=== PATIENT | female | born 1995 | race Caucasian/White ===

== ENCOUNTER 2023-09-13 13:37 | Emergency (ER) | payer BC, SELFPAY ==
[2023-09-13 13:45] VITALS: BP 127/85; PULSE 107; RESP 18; TEMP 37; O2SAT 97; BMI 27.4
--- NOTE | 2023-09-13 14:07 | ED.CHESTPAI1 ---
HPI - Chest Pain General Chief Complaint: Chest Pain Stated Complaint: CHEST PAIN, HIGH BLOOD PRESSURE Time Seen by Provider: 09/13/23 13:48 Source: patient Mode of arrival: walk-in Limitations: no limitations History of Present Illness HPI narrative: This 28-year-old female is here for evaluation of chest sharp pain. Symptoms began yesterday they lasted intermittently for about 3 hours yesterday morning and then later in the day they lasted nearly the entire day. However each episode she has just last for a second or 2 and goes away and then it will come back. It did not interrupt her sleep. She had recurrence of the symptoms today. Yesterday the pain was in her left mid sternum today to the right mid sternum. There is no associated nausea vomiting or diaphoresis. The pain is never been continuous. She does not have any shortness of breath. 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 She has never had any other serious medical problems and is not on any medication. She has not used any marijuana for at least a month or so. No other street or illicit drugs. She is not on any [id number] stimulants. She has no fever shakes or chills. No swelling of her legs. No history of vascular clotting disorders herself. She does not know much about her family history at all. She does have a family doctor in [facility]. She has no previous history of syncopal episodes. She has no loss of consciousness with doing aggressive workouts that she had last week. No travel history. No recent viral symptomatology. No history of cardiac disease. Related Data Home Medications Medication Instructions Recorded Confirmed No Known Home Medications 09/13/23 09/13/23 Allergies Allergy/AdvReac Type Severity Reaction Status Date / Time No Known Drug Allergies Allergy Verified 09/13/23 13:45 PFSH PFS Social History Smoking status: Never smoker Exam Narrative Exam Narrative: This patient is awake alert pleasant no obvious distress. Blood pressure is normal with slight increased heart rate. Twelve-lead EKG was done on arrival here does show sinus rhythm with no ischemia injury infarct or ectopy. HEENT examination showed scleral icterus pallor or anemia. No thyromegaly. No evidence of upper respiratory infection. Her lungs are clear with no wheeze rales rhonchi no pleural rub. Heart sounds normal with no arrhythmia. No heart murmurs appreciated. She does not have any abdominal discomfort.. Extremities show no swelling phlebitis or tenderness to palpation. Skin integument were normal with normal hydration status. Constitutional Vital Signs, click to edit/add: Last Vital Signs Temp 98.6 F 09/13/23 13:45 Pulse 107 H 09/13/23 13:45 Resp 18 09/13/23 13:45 BP 127/85 09/13/23 13:45 Pulse Ox 97 09/13/23 13:45 O2 Del Method Room Air 09/13/23 13:45 Course Vital Signs Vital signs: Vital Signs Temperature 98.6 F 09/13/23 13:45 Pulse Rate 107 H 09/13/23 13:45 Respiratory Rate 18 09/13/23 13:45 Blood Pressure 127/85 09/13/23 13:45 Pulse Oximetry 97 09/13/23 13:45 Oxygen Delivery Method Room Air 09/13/23 13:45 Temperature 98.6 F 09/13/23 13:45 Pulse Rate 107 H 09/13/23 13:45 Respiratory Rate 18 09/13/23 13:45 Blood Pressure 127/85 09/13/23 13:45 Pulse Oximetry 97 09/13/23 13:45 Oxygen Delivery Method Room Air 09/13/23 13:45 MDM - Chest Pain MDM Narrative Medical decision making narrative: This patient has history of discomfort since yesterday lasting very brief moments. She has normal vital signs and oximetry. Her EKG did not show any abnormalities. The cord Coppin diameter and cardiac troponin are both normal. Chest x-ray does not show any or mall. I did leave this card vascular in etiology. Supportive care was advised ECG Data Interpretation: EKG shows sinus rhythm rate 98 QT intervals normal. There is no ST segment elevation or arrhythmia noted. Heart Score History: Slightly/Non-Suspicious ECG: Normal Age: <45 years Risk Factors: No Risk Factors Troponin: <Normal Limit Total Heart Score Recommendations & Risks:: 0 Discharge Plan Discharge Chief Complaint: Chest Pain Clinical Impression: Atypical chest pain Patient Disposition: Home, Self-Care Time of Disposition Decision: 15:14 Prescriptions / Home Meds: No Action No Known Home Medications Additional Instructions: May use [id number] NSAIDs for several days only Stand Alone Forms: Portal Instructions Referrals: JANETH VALDEZ [Physician] - 1 week
--- NOTE | 2023-09-13 14:09 | ECG_ITS ---
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
--- NOTE | 2023-09-13 14:25 | XR_ITS ---
The [address] [address] Patient Name: JAMARI WAYNE MRN: [id number] date: 1995 Sex: F Assigned Patient Location: ER Current Patient Location: ED.MAIN Accession/Order Number: [id number] Exam Date: 09/13/2023 14:20 Report Date: 09/13/2023 14:51 At the request of: SANA LLAMAS Procedure: XR chest 1V EXAMINATION: XR chest 1V HISTORY: Chest pain COMPARISON: No relevant comparison available. FINDINGS: LUNGS: No significant pulmonary parenchymal abnormalities. VASCULATURE: No increased pulmonary vasculature. PLEURA: No pneumothorax, effusion, or pleural thickening. CARDIAC: No cardiomegaly or cardiac silhouette abnormality. MEDIASTINUM: No visible mass or adenopathy. BONES: No fracture or visible bone lesion. OTHER: Negative. XR/XR chest 1V IMPRESSION: 1. Normal examination. Electronically authenticated by: MARK MARTINEZ Date: 09/13/2023 14:51
[2023-09-13 14:30] LABS: Basophils Absolute Auto 0.1 10^3/uL (0.0-0.1); Basophils Percent Auto 0.5 % (0.2-2.0); Eosinophils Absolute Auto 0.3 10^3/uL (0.0-0.7); Eosinophils Percent Auto 2.5 % (0.9-7.0); Hematocrit 38.1 % (36.0-48.0); Hemoglobin 12.4 g/dL (12.0-16.0); Immature Granulocytes Abs Auto 0.04 10^3/uL (0.00-0.03); Immature Granulocytes Pct Auto 0.4 % (0.0-0.5); Lymphocytes Absolute Auto 1.8 10^3/uL (1.2-3.8); Lymphocytes Percent Auto 15.9 % (20.5-60.0); Mean Corpuscular HGB Conc 32.5 g/dL (29.9-35.2); Mean Corpuscular Hemoglobin 28.8 pg (26.7-34.0); Mean Corpuscular Volume 88.4 fL (81.0-99.0); Mean Platelet Volume 10.8 fL (9.5-13.5); Monocytes Absolute Auto 0.6 10^3/uL (0.3-0.8); Monocytes Percent Auto 5.8 % (1.7-12.0); Neutrophils Absolute Auto 8.3 10^3/uL (1.4-6.5); Neutrophils Percent Auto 74.9 % (43.0-75.0); Platelet Count 238 10^3/uL (150-450); Red Blood Count 4.31 10^6/uL (4.20-5.40); Red Cell Distribution Width 11.9 % (11.0-15.0); White Blood Count 11.1 10^3/uL (4.0-11.0)
[2023-09-13 14:46] LABS: Anion Gap 11.2; BUN Creatinine Ratio 14.4; Calcium 9.2 mg/dL (8.5-10.1); Carbon Dioxide 28.7 mmol/L (21.0-32.0); Chloride 105 mmol/L (98-107); Estimated GFR (African America >60 (>=60); Estimated GFR (Non-African Ame >60 (>=60); Glucose 115 mg/dL (74-106); Potassium 3.9 mmol/L (3.5-5.1); Sodium 141 mmol/L (136-145); Troponin I High Sensitivity 4.8 pg/mL (4.0-51.3)
[2023-09-13 15:01] LABS: D Dimer <0.19 mg/L FEU (<=0.59)
== END 2023-09-13 15:22 | disposition home or self-care (01) ==
PROVIDERS: Emergency Provider Emergency Medicine Emergency Medical Services
DX: R07.89 Other chest pain (principal); Q51.818 Other congenital malformations of uterus; Q50.01 Congenital absence of ovary, unilateral; Q60.0 Renal agenesis, unilateral
CPT/HCPCS: 36415; 71045; 80048; 84484; 85025; 85378; 93005; 99285

== ENCOUNTER 2023-09-18 20:10 | Emergency (ER) | payer BC, SELFPAY ==
[2023-09-18] VITALS (11 sets, daily range): BP systolic 133–141; BP diastolic 72–86; PULSE 79–93; RESP 6–23; TEMP 36.8; O2SAT 96–100; BMI 26.7
--- OUTSIDE RECORDS SUMMARY | 2023-09-18 20:15 | XMS_ITS | CCD ---
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, unilateral; 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] Onset: 09-04-2018 Chronic Results Test Name Value Interpretation Reference Range Facility Celiac 12-08-2020 Deamidated Gliadin Abs, IgA 17 Normal 0-19 [facility] Comment on above: Result Comment: Nega tive 0 - 19 Weak Positive 20 - 30 Moderate to Strong Positive >30 Performed By: #### C ELIAC #### [facility] , Deamidated Gliadin Abs, IgG 104 High 0-19 [facility] Comment on above: Result Comment: Nega tive 0 - 19 Weak Positive 20 - 30 Moderate to Strong Positive >30 Performed By: #### C ELIAC #### [facility] , Endomysial Antibody IgA Positive Critically abnormal Negative [facility] Comment on above: Performed By: #### C ELIAC #### [facility] , Immunoglobulin A, Qn, Serum 122 mg/dL Normal 87-352 [facility] Comment on above: Result Comment: Perf ormed at: CB - [facility] [address] [id number] [employer] Loader Operator: Charles Berger PhD, Phone: [phone] PERFORMED BY: [facility] [place] [address] PATHOLOGIST ACCOUNTING CLERKS SUPERVISOR HAILEY MOON M.D. Performed By: #### C ELIAC #### [facility] , T-Transglutaminase (tTG) IgA 25 High 0-3 [facility] Comment on above: Result Comment: Nega tive 0 - 3 Weak Positive 4 - 10 Positive >10 Tissue Transglutaminase (tTG) has been identified as the endomysial antigen. Studies have demonstr- ated that endomysial IgA antibodies have over 99% specificity for gluten sensitive enteropathy. Performed By: #### C ELIAC #### [facility] , T-Transglutaminase (tTG) IgG 53 High 0-5 [facility] Comment on above: Result Comment: Nega tive 0 - 5 Weak Positive 6 - 9 Positive >9 Performed By: #### C ELIAC #### [facility] , Marvel 12-08-2020 L - -------- Specimen: [id number] Received: 12/08/20 Status: ESSENCE Montaño Num: [id number] Spec Type: Surgical Subm Dr: Kaushal Marie MD Tissues: A Small Intestine - Biopsy/Polyp (SMALL BOWEL BX) Procedures: HE Stain/2, Gross/Micro L4 -------- Patient Age/Sex Location Account Attending Physician -------- Ivette Blum 25/ [id number] Kaushal Marie MD -------- SPEC NUM: [id number] RECD: 12/08/20 STATUS: ESSENCE MONTAÑO NUM: [id number] MELINDA: 12/08/20- SUBM DR: Kaushal Marie MD ENTERED: 12/08/20-[address] [facility] [address]: ABA TYPE: Surgical DEPT: S ORDERED: HE Stain/2, Gross/Micro L4 ORDERED: HE Stain/2, Gross/Micro L4 Pathological Diagnosis Small intestine, biopsy: - Small intestinal mucosa showing moderate mucosal lesions with villous blunting and intraepithelial lymphocytosis (see NOTE) NOTE: The findings are characteristic of gluten sensitive enteropathy (i.e. celiac sprue) in the proper clinical setting. Correlation with serologic studies is indicated. Other possible differential considerations include (but are not limited to) Helicobacter enterogastritis, autoimmune enteropathy, refractory sprue, protein intolerance and nutritional deficiencies. Correlation with clinical and endoscopic findings is recommended. Clinical Information Dyspepsia, change in bowel habits Gross Description Received in formalin labeled with the patient's name, number and small bowel biopsy rule out celiac are 4 thornton-pink tissue fragments, 0.3-0.4 cm. Entirely submitted in one cassette labeled A1. (SM/JS) Microscopic Description Two glass slides with H E stained material have been examined. The microscopic findings support the above pathologic diagnosis. [id number] -------- -------- Specimen: [id number] Received: 12/08/20 Status: ESSENCE Ermelinda Num: [id number] Spec Type: Surgical Subm Dr: Kaushal Marie MD Tissues: A Small Intestine - Biopsy/Polyp (SMALL BOWEL BX) Procedures: HE Stain/2, Gross/Micro L4 -------- Patient: Ivette Blum [id number] (Continued) -------- Signed (signature on file) Hailey Moon MD 12/09/20 8898 [facility] COVID-19 [facility] [place] SARS-CoV-2 (COVID-19) RNA MARGARETH+probe Ql (Unsp spec) Negative Normal Negative [facility] Comment on above: Order Comment: Healt hcare Worker?: N Result Comment: Testing for SARS-CoV-2 by RT-PCR This test was developed and its performance characteristics determined by [employer] [facility] and validated at the [facility]. This test has not been FDA cleared or approved. This test has been authorized by FDA under an Emergency Use Authorization (EUA). This test has been validated in accordance with the FDA's Guidance Document (Policy for Diagnostics Testing in Laboratories Certified to Perform High Complexity Testing under CLIA prior to Emergency Use Authorization for Coronavirus Disease-2019 during the Public Health Emergency) issued on October 25, 2019. This test is only authorized for the duration of time the declaration that circumstances exist justifying the authorization of the emergency use of in vitro diagnostic tests for detection of SARS-CoV-2 virus and/or diagnosis of COVID-19 infection under section 564(b)(1) of the Act, 21 U.S.C. 360bbb-3(b)(1), unless the authorization is terminated or revoked sooner. PERFORMED BY: [place] [address] PATHOLOGIST ACCOUNTING CLERKS SUPERVISOR HAILEY MOON M.D. Performed By: #### C OVID 19 [facility] [place] #### [address] Coding Summary.on 09-01-2020 Coding Summary. CODING DATE: 09/01/2020 FINAL [facility] STATUS: Home (Routine DC) PAYOR: Commercial Insurance APC DESCRIPTION 8004 Ultrasound Composite ADMIT DX: REASON FOR VISIT DX: R14.0 Abdominal distension (gaseous) FINAL DX: PRINCIPAL: R14.0 Abdominal distension (gaseous) SECONDARY: Z90.710 Acquired absence of both cervix and uterus Z90.721 Acquired absence of ovaries, unilateral PYMT PROC APC STAT DESCRIPTION DOCTOR NAME DATE NOTE: The code number assigned matches the documented diagnosis and / or procedure in the patient's chart. However, the narrative phrase printed from the coding software may appear abbreviated, or result in slightly different terminology. Coded By: Jessica CedeñoJennie Date Saved: 09/01/2020 02:20 pm Normal [facility] US Abdomen, Limitedon 2020 US Abdomen, Limited Exam Date/Time: 08/28/2020 08:25 EST Reason for Exam: Abdominal distension (gaseous) Report IMPRESSION: NORMAL EXAMINATION. EXAMINATION: US Abdomen, Limited HISTORY: Abdominal distention COMPARISON: CT abdomen pelvis from 05/02/2007 TECHNIQUE: Grayscale and color Doppler ultrasound was performed of the right upper quadrant of the abdomen. FINDINGS: Normal contour and echogenicity of the liver. Liver length measured at 14.3 cm. No liver lesion or intrahepatic biliary dilatation. The gallbladder is physiologically distended and contains no gallstones. Gallbladder wall thickness is normal measuring up to 3 mm in thickness. No pericholecystic fluid. Common bile duct is normal measuring up to 4 mm in diameter. Pancreas is suboptimally visualized. FINAL REPORT Dictated: 08/29/2020 10:11 am Rico Bernal DO Signed (Electronic Signature): 08/29/2020 10:11 am Signed by: Rico Bernal DO Transcribed by: WHIT Technologist: LUKE Roland [facility] US Pelvis Non-OB Limitedon 0 08-29-2020 US Pelvis Non-OB Limited Exam Date/Time: 08/28/2020 09:24 EST Reason for Exam: Abdominal distension (gaseous) Report IMPRESSION: NEGATIVE ULTRASOUND OF THE PELVIS AFTER PREVIOUS HYSTERECTOMY AND LEFT OOPHORECTOMY. EXAM: US Pelvis Non-OB Limited DATE: 08/28/2020 CLINICAL HISTORY: Abdominal distension (gaseous). COMPARISON: 07/27/2009 TECHNIQUE: Transabdominal ultrasound was performed of the pelvis. FINDINGS: The uterus and left ovary have been removed. The right ovary appears within normal limits. There is no significant free fluid, abnormal adnexal masses, or other findings of concern identified. The right ovary measurements and estimated volume: Right Ovary Length: 2.5 cm Right Ovary Width: 1.7 cm Right Ovary Height: 2.2 cm Right Ovary Volume: 4.8 cm3 FINAL REPORT Dictated: 08/29/2020 1:18 pm Abhishek Remy MD Signed (Electronic Signature): 08/29/2020 1:18 pm Signed by: Abhishek Remy MD Transcribed by: WHIT Technologist: LUKE Technical Comments Transabdominal Ultrasound Performed Normal [facility] Consent for Treatmenton Consent for Treatment [id number] .[id number]:127 Normal [facility] Physician Orderon 08-27-2020 Physician Order [id number] .[id number]:127 Normal [facility] CBC AUTO DIFFon 09-01-2018 Basophils #/vol (Bld) 0.1 103/ul Normal 0.0-0.1 [facility] Comment on above: Performed By: #### C BC #### [facility] [address] [place] [address] Leah Elysia Basophils/100 WBC (Bld) 0.7 % Normal 0.2-2.0 [facility] Comment on above: Performed By: #### C BC #### [facility] [address] [place] [address] Leah Elysia Eosinophils #/vol (Bld) 0.1 103/ul Normal 0.0-0.7 [facility] Comment on above: Performed By: #### C BC #### [facility] [address] [place], [place] [id number] Leah Elysia Eosinophils/100 WBC (Bld) 0.9 % Normal 0.9-7.0 [facility] Comment on above: Performed By: #### C BC #### [facility] [address] [place] [address] Leah Elysia Erythrocyte distribution width Ratio (RBC) 11.9 % Normal 11.0-15.0 [facility] Comment on above: Performed By: #### C BC #### [facility] [address] [place], [place] [id number] Leah Elysia Hematocrit Volume Fraction (Bld) 45.9 % Normal 36.0-48.0 [facility] Comment on above: Performed By: #### C BC #### [facility] [address] [place], [place] [phone] Leah Elysia Hemoglobin mass conc (Bld) 15.8 g/dL Normal 12.0-16.0 [facility] Comment on above: Performed By: #### C BC #### [facility] [address] [place] [address] Leah Naidu IG # 0.00 10e3/ul Normal 0.00-0.03 [facility] Comment on above: Performed By: #### C BC #### [facility] [address] [place] [address] Leah Naidu IG % 0.1 % Normal 0.0-0.5 [facility] Comment on above: Performed By: #### C BC #### [facility] [address] [place] [address] Leah Naidu Lymphocytes #/vol (Bld) 1.3 103/ul Normal 1.2-3.8 [facility] Comment on above: Performed By: #### C BC #### [facility] [address] [place] [address] Leah Naidu Lymphocytes/100 WBC (Bld) 17.9 % Critically low 20.5-60.0 [facility] Comment on above: Performed By: #### C BC #### [facility] [address] [place] [address] Leah Naidu MANUAL DIFF REQ NO Normal [facility] Comment on above: Performed By: #### C BC #### [facility] [address] [place] [address] Leah Naidu MCH Entitic mass (RBC) 29.3 pg Normal 26.7-34.0 [facility] Comment on above: Performed By: #### C BC #### [facility] [address] [place] [address] Leah Naidu MCHC mass conc (RBC) 34.4 g/dL Normal 29.9-35.2 [facility] Comment on above: Performed By: #### C BC #### [facility] [address] [place] [address] Leah Naidu MCV Entitic volume (RBC) 85.2 fL Normal 81.0-99.[address] [facility] Comment on above: Performed By: #### C BC #### [facility] [address] [place], [place] [address] Leah Elysia Monocytes #/vol (Bld) 0.6 103/ul Normal 0.3-0.8 [facility] Comment on above: Performed By: #### C BC #### [facility] [address] [place], [place] [address] Leah Elysia Monocytes/100 WBC (Bld) 7.3 % Normal 1.7-12.0 [facility] Comment on above: Performed By: #### C BC #### [facility] [address] [place], [place] [address] Leah Elysia Neutrophils #/vol (Bld) 5.5 103/ul Normal 1.4-6.5 [facility] Comment on above: Performed By: #### C BC #### [facility] [address] [place], [place] [phone] Leah Elysia Neutrophils/100 WBC (Bld) 73.1 % Normal 43.0-75.0 [facility] Comment on above: Performed By: #### C BC #### [facility] [address] [place] [address] Leah Elysia Platelet mean volume Entitic volume (Bld) 11.0 fL Normal 9.5-13.[address] [facility] Comment on above: Performed By: #### C BC #### [facility] [address] [place], [place] [phone] Leah Elysia Platelets #/vol (Bld) 158 103/ul Normal 150-[address] [facility] Comment on above: Performed By: #### C BC #### [facility] [address] [place], [place] [address] Leah Elysia RBC #/vol (Bld) 5.40 106/ul Normal 4.20-5.40 [facility] Comment on above: Performed By: #### C BC #### [facility] [address] [place] [id number] Leah Elysia WBC #/vol (Bld) 7.5 103/ul Normal 4.0-11.0 [facility] Comment on above: Performed By: #### C BC #### [facility] [address] [place] [address] Leahmel Vegasen CRPon 09-01-2018 CRP mass conc 0.2 mg/dL Normal <=1.0 [facility] Comment on above: Performed By: #### C MP, CRP #### [facility] [address] [place] [address] Leah Elysia D-DIMERon 09-01-2018 D-DIMER COMMENTS SEE BELOW Normal [facility] Comment on above: Result Comment: Incr eases in D-Dimer concentration observed with thromboembolic events can be variable due to localization, size, and age of the thrombus. Therefore, a thromboembolic event cannot be diagnosed with certainty on the basis of the reference range. D-Dimers may also be elevated for a variety of disorders including: advanced age, , coronary disease, cancer, liver disease, infection, inflammation, hematoma, DIC, trauma, post-surgery, diabetes, thrombolytic or anticoagulant therapy, stress, and generalizd hospitalization. Performed By: #### D DIM #### [facility] [address] [place] [address] Leahmel Naidu Fibrin D-dimer FEU IA mass conc (Bld) 0.25 ug/mL Normal 0.19-0.50 [facility] Comment on above: Performed By: #### D DIM #### [facility] [address] [place] [address] Leah Elysia ER URINE PROFILEon 9 Bilirubin mass conc Negative Normal NEGATIVE [facility] Comment on above: Performed By: #### E RUR #### [facility] [address] [place] [address] Leah Elysia BLOOD Negative Normal NEGATIVE [facility] Comment on above: Performed By: #### E RUR #### [facility] [address] [place] [address] Leah Elysia Clarity Nom (U) CLEAR Normal [facility] Comment on above: Performed By: #### E RUR #### [facility] [address] [place] [address] Leah Elysia Color Nom (U) LT. YELLOW Normal YELLOW [facility] Comment on above: Performed By: #### E RUR #### [facility] [address] [place] [address] Leah Naidu ERUAHD A micrscopic examination will be performed if indicated. Normal The [facility] Comment on above: Performed By: #### E RUR #### [facility] [address] [place] [address] Leah Naidu Glucose mass conc Negative Normal NEGATIVE [facility] Comment on above: Performed By: #### E RUR #### [facility] [address] [place] [address] Leah Naidu Ketones Ql (U) Negative Normal NEGATIVE [facility] Comment on above: Performed By: #### E RUR #### [facility] [address] [place] [address] Leah Naidu Nitrite Ql (U) Negative Normal NEGATIVE [facility] Comment on above: Performed By: #### E RUR #### [facility] [address] [place] [address] Leah Naidu pH (Bld) 6.5 Normal 5-[address] [facility] Comment on above: Performed By: #### E RUR #### [facility] [address] [place] [address] Leah Naidu Protein mass conc (U) Negative Normal [facility] Comment on above: Performed By: #### E RUR #### [facility] [address] [place] [address] Leah Naidu SPEC GRAVITY <=1.005 Normal 1.005-<=1.025 [facility] Comment on above: Performed By: #### E RUR #### [facility] [address] [place] [address] Leah Naidu UR MICRO IND NOT INDICATED Normal [facility] Comment on above: Performed By: #### E RUR #### [facility] [address] [place] [address] Leah Naidu Urobilinogen Qn (U) 0.2 EU/dl Normal [facility] Comment on above: Performed By: #### E RUR #### [facility] [address] [place] [address] Leah Naidu WBC #/vol (Bld) Negative Normal NEGATIVE [facility] Comment on above: Performed By: #### E RUR #### [facility] [address] [place] [address] Leah Naidu INFLUENZA A AND B AGon 09-01 INFLUANEGH SEE BELOW Normal The [facility] Comment on above: Result Comment: Nega tive for Flu A protein angiten. Infection due to Flu A cannot be ruled out. Flu A angiten in the sample may be below the detection limit of the test. Performed By: #### I NFLUAB #### [facility] [address] [place] [address] Leah Naidu INFLUBNEGH SEE BELOW Normal [facility] Comment on above: Result Comment: Nega tive for Flu B protein antigen. Infection due to Flu B cannot be ruled out. Flu B antigen in the sample may be below the detection limit of the test. Performed By: #### I NFLUAB #### [facility] [address] [place] [address] Leah Naidu INFLUENZA A AG Negative Normal NEGATIVE SEE COMMENT [facility] Comment on above: Performed By: #### I NFLUAB #### [facility] [address] [place] [address] Leah Naidu INFLUENZA B AG Negative Normal NEGATIVE SEE COMMENT [facility] Comment on above: Performed By: #### I NFLUAB #### [facility] [address] [place] [address] Leah Naidu INTERNAL CONTROLS Within Normal Limits Normal Wi thin Normal Limits The [facility] Comment on above: Performed By: #### I NFLUAB #### [facility] [address] [place] [address] Leah Naidu PROF 14(COMP METB)on 019 Albumin mass conc 4.4 g/dL Normal 3.5-5.0 [facility] Comment on above: Performed By: #### C MP, CRP #### [facility] [address] [place] [address] Leah Elysia Albumin/Globulin mass ratio 1.4 {ratio} Normal [facility] Comment on above: Performed By: #### C MP, CRP #### [facility] [address] [place] [address] Leah Elysia ALP enzyme act/vol 62 U/L Normal 38-126 [facility] Comment on above: Performed By: #### C MP, CRP #### [facility] [address] [place] [address] Leah Elysia ALT enzyme act/vol 38 U/L Normal 9-52 [facility] Comment on above: Performed By: #### C MP, CRP #### [facility] [address] [place] [address] Leah Elysia Anion gap molar conc 15.0 mmol/L Normal [facility] Comment on above: Performed By: #### C MP, CRP #### [facility] [address] [place] [address] Leah Elysia AST enzyme act/vol 17 U/L Normal 14-36 [facility] Comment on above: Performed By: #### C MP, CRP #### [facility] [address] [place] [address] Leah Elysia Bilirubin Ql (U) 0.3 mg/dL Normal 0.2-1.3 [facility] Comment on above: Performed By: #### C MP, CRP #### [facility] [address] [place] [address] Leah Elysia Calcium mass conc 9.6 mg/dL Normal 8.4-10.2 [facility] Comment on above: Performed By: #### C MP, CRP #### [facility] [address] [place] [address] Leah Elysia Chloride molar conc 104 mmol/L Normal 98-107 [facility] Comment on above: Performed By: #### C MP, CRP #### [facility] [address] [place] [address] Leah Elysia CO2 molar conc 24.5 mmol/L Normal 22.0-30.0 [facility] Comment on above: Performed By: #### C MP, CRP #### [facility] [address] [place] [address] Leah Elysia Creatinine mass conc 0.90 mg/dL Normal 0.52-1.04 [facility] Comment on above: Performed By: #### C MP, CRP #### [facility] [address] [place] [address] Leah Elysia EGFR-AF GABONESE >60 Normal >=60 [facility] Comment on above: Performed By: #### C MP, CRP #### [facility] [address] [place] [address] Leah Elysia EGFR-NON AF GABONESE >60 Normal >=60 [facility] Comment on above: Performed By: #### C MP, CRP #### [facility] [address] [place] [address] Leah Elysia Globulin mass conc (S) 3.2 g/dL Normal [facility] Comment on above: Performed By: #### C MP, CRP #### [facility] [address] [place] [address] Leah Elysia Glucose mass conc 114 mg/dL Critically high 74-106 [facility] Comment on above: Performed By: #### C MP, CRP #### [facility] [address] [address] Leah Elysia Potassium molar conc 3.5 mmol/L Normal 3.4-5.[address] [facility] Comment on above: Performed By: #### C MP, CRP #### [facility] [address] [address] Leah Elysia Protein mass conc 7.6 g/dL Normal 6.1-8.2 The [facility] Comment on above: Performed By: #### C MP, CRP #### [facility] [address] [address] Leah Elysia Sodium molar conc 140 mmol/L Normal 137-145 The [facility] Comment on above: Performed By: #### C MP, CRP #### [facility] [address], [place] [address] Leah Naidu Urea nitrogen mass conc 14.0 mg/dL Normal 7.0-17.0 [facility] Comment on above: Performed By: #### C MP, CRP #### [facility] [address], [place] [address] Leah Naidu Urea nitrogen/Creatinine mass ratio 15.6 mg/mg Normal The [facility] Comment on above: Performed By: #### C MP, CRP #### [facility] [address] [place], [place] [address] Leah Naidu Encounters Encounter Date Encounter Type Care Provider Facility Start: 09-01-2018 End: 09-01-2018 Patient encounter procedure MALINI MARKER Facility:[facility] Payers Date Payer Category Payer Unknown [id number] 1959 Unknown [id number] Summary Purpose Family History No Family History Records FoundNo Family History Records FoundNo Family History Records Found Advance Directives No Advanced Directives Records FoundNo Advanced Directives Records FoundNo Advanced Directives Records Found Additional Source Comments INFORMATION SOURCE (unrecogn ized section and content) DATE CREATED AUTHOR 09/13/2018 [facility] DATE CREATED AUTHOR AUTHOR'S ORGANIZ ATION 09/02/2020 [facility] DATE CREATED AUTHOR AUTHOR'S ORGANIZ ATION 08/19/2021 [facility] FOR RECORDS PERTAINING TO PATIENTS WHO ARE OR HAVE BEEN ENROLLED IN A CHEMICAL DEPENDENCY/SUBSTANCEABUSE PROGRAM, SOME INFORMATION MAY BE OMITTED. This clinical summary was aggregated from multiple sources. Caution should be exercised in using it in the provision of clinical care. This summary normalizes information from multiple sources, and as a consequence, information in this document may materially change the coding, format and clinical context of patient data. In addition, data may be omitted in some cases. CLINICAL DECISIONS SHOULD BE BASED ON THE PRIMARY CLINICAL RECORDS. [employer] provides no warranty or guarantee of the accuracy or completeness of information in this document.
--- NOTE | 2023-09-18 20:21 | ECG_ITS ---
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
--- NOTE | 2023-09-18 20:34 | ED_ITS ---
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 She has pain in the left side of her chest that sometimes goes up into her neck. She states she is mildly short of breath but thinks that this is due to anxiety. She is also mildly nauseated but thinks this is also related to anxiety. She states she has had the pain since Tuesday. She was seen here on Tuesday. At that time was thought that her chest pain was not cardiac in nature and she was discharged home. She states she has been intermittently taking Tylenol for the pain. She denies any dizziness diaphoresis or syncope. She has no abdominal pain or back pain. She has no lower extremity pain or swelling. She has not had a cough or chest congestion but states she did have sinus problems for approximately 3 weeks recently. At this time is midsternal and to the right and left of the sternum bilaterally. It does not radiate into her back but does radiate into her left arm and left side of her neck. Risk Factors Coronary artery disease risk factors: none Related Data Home Medications Medication Instructions Recorded Confirmed No Known Home Medications 09/13/23 09/13/23 Allergies Allergy/AdvReac Type Severity Reaction Status Date / Time No Known Drug Allergies Allergy Verified 09/13/23 13:45 Review of Systems ROS Status of ROS 10 or more systems reviewed and unremark able except as noted in history and below [facility] Social History Smoking status: Never smoker Exam Narrative Exam Narrative: Nurses note and vital signs reviewed and patient is not hypoxic. General: The patient appears well and in no apparent distress. Patient is resting comfortably on cart. Skin: Warm, dry, no pallor noted. There is no rash noted. Head: Normocephalic, atraumatic Eye: Normal conjunctiva, no drainage, EOMI. PERRL Ears, Nose, Mouth, and Throat: oral mucosa is moist. Cardiovascular: Regular Rate and Rhythm, S1S2 at 95 bpm, pulses are brisk and equal bilaterally, no reproducible chest wall tenderness or crepitus Respiratory: Patient is in no distress, no accessory muscle use, lungs are clear to auscultation, no wheezing, rales or rhonchi Back: non-tender, no CVA tenderness bilaterally to percussion. GI: Normal bowel sounds, no tenderness to palpation, no masses appreciated. No rebound, guarding, or rigidity noted. Musculoskeletal: The patient has no evidence of calf tenderness, no pitting edema, symmetrical pulses noted bilaterally Neurological: A&O x4, normal speech Psychiatric: Cooperative Constitutional Vital Signs, click to edit/add: Last Vital Signs Temp 98.3 F 09/18/23 20:14 Pulse 85 09/18/23 20:50 Resp 23 09/18/23 20:50 BP 141/86 09/18/23 20:15 Pulse Ox 98 09/18/23 20:50 O2 Del Method Room Air 09/18/23 20:14 Course Vital Signs Vital signs: Vital Signs Temperature 98.3 F 09/18/23 20:14 Pulse Rate 93 H 09/18/23 20:14 Respiratory Rate 18 09/18/23 20:14 Blood Pressure 141/86 09/18/23 20:14 Pulse Oximetry 97 09/18/23 20:14 Oxygen Delivery Method Room Air 09/18/23 20:14 Temperature 98.3 F 09/18/23 20:14 Pulse Rate 85 09/18/23 20:50 Respiratory Rate 23 09/18/23 20:50 Blood Pressure 141/86 09/18/23 20:15 Pulse Oximetry 98 09/18/23 20:50 Oxygen Delivery Method Room Air 09/18/23 20:14 MDM - Chest Pain MDM Narrative Medical decision making narrative: This 28-year-old female, nonsmoker who has 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 She states she has had chest pain for about a week. It moves around to different areas of her chest such as her upper chest, sternal area and lower chest area. She stated that she felt she was mildly short of breath and mildly nauseated but this was related to feeling anxious. She declined any Valium to help treat her symptoms of anxiety. She was medicated with IV Toradol and IV fluids. She has a normal EKG. Cardiac workup including troponin and d- dimer were ordered. She has normal troponin, normal d-dimer. Normal sedimentation rate and CRP. She has a normal white count and hemoglobin. Her creatinine is mildly elevated today at 1.32. I did discuss with her that she needs to stay hydrated especially in light of the fact that she only has one kidney. She admits that she has not been drinking much water over the weekend and will pay closer attention to her oral fluid intake. At this point I feel she is safe to be discharged home. She will follow-up with her family physician. I encouraged her to return to emergency department as needed for ongoing or worsening chest pain dizziness shortness of breath or any concerns. Medical Records Data Attestation: I reviewed the patient's medical records. Medical records narrative: negative cardiac work up Lab Data Labs: Lab Results 09/18/23 Range/Units 20:18 WBC 13.2 H (4.0-11.0) 10^3/uL RBC 4.31 (4.20-5.40) 10^6/uL Hgb 12.6 (12.0-16.0) g/dL Hct 37.2 (36.0-48.0) % MCV 86.3 (81.0-99.0) fL MCH 29.2 (26.7-34.0) pg MCHC 33.9 (29.9-35.2) g/dL RDW 11.9 (11.0-15.0) % Plt Count 250 (150-450) 10^3/uL MPV 11.2 (9.5-13.5) fL Neut % (Auto) 59.2 (43.0-75.0) % Lymph % (Auto) 26.9 (20.5-60.0) % Sanders % (Auto) 8.1 (1.7-12.0) % Eos % (Auto) 4.6 (0.9-7.0) % Baso % (Auto) 1.0 (0.2-2.0) % Neut # (Auto) 7.8 H (1.4-6.5) 10^3/uL Lymph # (Auto) 3.6 (1.2-3.8) 10^3/uL Sanders # (Auto) 1.1 H (0.3-0.8) 10^3/uL Eos # (Auto) 0.6 (0.0-0.7) 10^3/uL Baso # (Auto) 0.1 (0.0-0.1) 10^3/uL Abs Immat Gran (auto) 0.03 (0.00-0.03) 10^3/uL Imm/Tot Granulo (auto) 0.2 (0.0-0.5) % ESR 15 (<=20) mm/hr D-Dimer 0.30 (<=0.59) mg/L FEU Sodium 141 (136-145) mmol/L Potassium 3.4 L (3.5-5.1) mmol/L Chloride 104 (98-107) mmol/L Carbon Dioxide 26.4 (21.0-32.0) mmol/L Anion Gap 14.0 BUN 20.0 H (7.0-18.0) mg/dL Creatinine 1.32 H (0.55-1.02) mg/dL Est GFR ( Amer) 58 L (>=60) Est GFR (Non-Af Amer) 48 L (>=60) BUN/Creatinine Ratio 15.2 Glucose 106 (74-106) mg/dL Calcium 9.4 (8.5-10.1) mg/dL Total Bilirubin 0.2 (0.2-1.0) mg/dL AST 17 (15-37) U/L ALT 17 (14-59) U/L Alkaline Phosphatase 65 (46-116) U/L Troponin I High Sens 4.5 (4.0-51.3) pg/mL C-Reactive Protein <0.50 (<=0.50) mg/dL Total Protein 7.6 (6.4-8.2) g/dL Albumin 3.7 (3.4-5.0) g/dL Globulin 3.9 g/dL Albumin/Globulin Ratio 0.9 ECG Data Attestation: I personally reviewed and interpreted this ECG as follows: (Sinus rhythm at 93 beats for minute, normal axis, normal intervals, no acute ST segment elevation or T-wave inversion) Heart Score History: Slightly/Non-Suspicious ECG: Normal Age: <45 years Risk Factors: No Risk Factors Troponin: <Normal Limit Total Heart Score Recommendations & Risks:: 0 Discharge Plan Discharge Chief Complaint: Chest Pain Clinical Impression: Chest wall pain, Atypical chest pain, Dehydration, mild Patient Disposition: Home, Self-Care Time of Disposition Decision: 21:36 Condition: Good Prescriptions / Home Meds: No Action No Known Home Medications Stand Alone Forms: Portal Instructions Referrals: Physician,Non-Staff, MD [Primary Care Provider] - 1 week
[2023-09-18] MEDS: 0.9 % SODIUM CHLORIDE 1,000 ML 1000 ML IV (20:45)
[2023-09-18] MEDS: KETOROLAC TROMETHAMINE 30 MG/ML VIAL 15 MG IVP (20:46)
[2023-09-18 20:48] LABS: Basophils Absolute Auto 0.1 10^3/uL (0.0-0.1); Eosinophils Absolute Auto 0.6 10^3/uL (0.0-0.7); Eosinophils Percent Auto 4.6 % (0.9-7.0); Hematocrit 37.2 % (36.0-48.0); Hemoglobin 12.6 g/dL (12.0-16.0); Immature Granulocytes Abs Auto 0.03 10^3/uL (0.00-0.03); Immature Granulocytes Pct Auto 0.2 % (0.0-0.5); Lymphocytes Absolute Auto 3.6 10^3/uL (1.2-3.8); Lymphocytes Percent Auto 26.9 % (20.5-60.0); Mean Corpuscular HGB Conc 33.9 g/dL (29.9-35.2); Mean Corpuscular Hemoglobin 29.2 pg (26.7-34.0); Mean Corpuscular Volume 86.3 fL (81.0-99.0); Mean Platelet Volume 11.2 fL (9.5-13.5); Monocytes Absolute Auto 1.1 10^3/uL (0.3-0.8); Monocytes Percent Auto 8.1 % (1.7-12.0); Neutrophils Absolute Auto 7.8 10^3/uL (1.4-6.5); Neutrophils Percent Auto 59.2 % (43.0-75.0); Platelet Count 250 10^3/uL (150-450); Red Blood Count 4.31 10^6/uL (4.20-5.40); Red Cell Distribution Width 11.9 % (11.0-15.0); White Blood Count 13.2 10^3/uL (4.0-11.0)
[2023-09-18 20:54] LABS: Erythrocyte Sedimentation Rate 15 mm/hr (<=20)
[2023-09-18 21:02] LABS: Alanine Aminotransferase 17 U/L (14-59); Albumin Globulin Ratio 0.9; Albumin Level 3.7 g/dL (3.4-5.0); Alkaline Phosphatase 65 U/L (46-116); Aspartate Amino Transferase 17 U/L (15-37); BUN Creatinine Ratio 15.2; Bilirubin Total 0.2 mg/dL (0.2-1.0); Calcium 9.4 mg/dL (8.5-10.1); Carbon Dioxide 26.4 mmol/L (21.0-32.0); Chloride 104 mmol/L (98-107); Estimated GFR (African America 58 (>=60); Estimated GFR (Non-African Ame 48 (>=60); Globulin 3.9 g/dL; Glucose 106 mg/dL (74-106); Potassium 3.4 mmol/L (3.5-5.1); Sodium 141 mmol/L (136-145); Total Protein 7.6 g/dL (6.4-8.2)
[2023-09-18 21:05] LABS: C Reactive Protein <0.50 mg/dL (<=0.50); Troponin I High Sensitivity 4.5 pg/mL (4.0-51.3)
--- NOTE | 2023-09-18 21:08 | XR_ITS ---
The [address] [address] Patient Name: JAMARI WAYNE MRN: [id number] date: 1995 Sex: F Assigned Patient Location: ER Current Patient Location: Accession/Order Number: [id number] Exam Date: 09/18/2023 21:20 Report Date: 09/18/2023 21:56 At the request of: MALINI MARKER Procedure: XR chest 2V EXAM: XR chest 2V HISTORY: The patient is a 28-year-old female, CP COMPARISON: 09/13/2023. FINDINGS: The lungs are well-inflated and clear with no confluent airspace infiltrates, pleural effusions, or pneumothoraces. The heart and mediastinum are within normal limits. The trachea is midline. Incidentally noted are hemivertebrae within the upper thoracic spine. XR/XR chest 2V IMPRESSION: No acute cardiopulmonary abnormalities. Electronically authenticated by: ALYSHA GRAJEDA Date: 09/18/2023 21:56
== END 2023-09-18 21:49 | disposition home or self-care (01) ==
PROVIDERS: Emergency Provider Emergency Medicine
DX: R07.89 Other chest pain (principal); E86.0 Dehydration; Q60.0 Renal agenesis, unilateral; Q51.0 Agenesis and aplasia of uterus; Q50.01 Congenital absence of ovary, unilateral
CPT/HCPCS: 36415; 71046; 80053; 84484; 85025; 85378; 85652; 86140; 93005; 96361; 96374; 99285; J1885

== ENCOUNTER 2023-10-21 14:44 | Outpatient (OUT) | payer BC, SELFPAY ==
--- OUTSIDE RECORDS SUMMARY | 2023-10-21 14:48 | XMS_ITS | CCD ---
Author Organization [facility] Care Team Providers Care Cement Worker Name Role Phone JUAN JOSE, MALINI Admitting Unavailable MARKER, MALINI Attending Unavailable [...] Test Name Value Interpretation Reference Range Facility [facility] 12-08-2020 Deamidated Gliadin Abs, IgA 17 Normal 0-19 [facility] Comment on above: Result Comment: Nega tive 0 - 19 Weak Positive 20 - 30 Moderate to Strong Positive >30 Performed By: #### C ELIAC #### [facility] , Deamidated Gliadin Abs, IgG 104 High 0-19 [facility] Comment on above: Result Comment: Nega tive 0 - 19 Weak Positive 20 - 30 Moderate to Strong Positive >30 Performed By: #### C ELIAC #### [facility] , Endomysial Antibody IgA Positive Critically abnormal Negative [facility] Comment on above: Performed By: #### C ELIAC #### [facility] , Immunoglobulin A, Qn, Serum 122 mg/dL Normal 87-352 [facility] Comment on above: Result Comment: Perf ormed at: CB - [facility] [address] [id number] Field Crew Chief: Charles Berger PhD, Phone: [phone] PERFORMED BY: [place] [address] [place] [address] PATHOLOGIST FRONT END SPECIALIST HAILEY MOON M.D. Performed By: #### C ELIAC #### [facility] , T-Transglutaminase (tTG) IgA 25 High 0-3 [facility] Comment on above: Result Comment: Nega tive 0 - 3 Weak Positive 4 - 10 Positive >10 Tissue Transglutaminase (tTG) has been identified as the endomysial antigen. Studies have demonstr- ated that endomysial IgA antibodies have over 99% specificity for gluten sensitive enteropathy. Performed By: #### C ELIAC #### [facility] , T-Transglutaminase (tTG) IgG 53 High 0-5 [facility] Comment on above: Result Comment: Nega tive 0 - 5 Weak Positive 6 - 9 Positive >9 Performed By: #### C ELIAC #### [facility] , Marvel 12-08-2020 L - -------- Specimen: [id number] Received: 12/08/20 Status: ESSENCE Ermelinda Num: [id number] Spec Type: Surgical Subm Dr: Kaushal Marie MD Tissues: A Small Intestine - Biopsy/Polyp (SMALL BOWEL BX) Procedures: HE Stain/2, Gross/Micro L4 -------- Patient Age/Sex Location Account Attending Physician -------- Ivette Blum [id number] Kaushal Marie MD -------- SPEC NUM: [id number] RECD: 12/08/20 STATUS: ESSENCE MONTAÑO NUM: [id number] MELINDA: 12/08/20- [facility] DR: Kaushal Marie MD ENTERED: 12/08/20-6 [facility] DR: ABA TYPE: Surgical DEPT: S [...] microscopic findings support the above pathologic diagnosis. [id number] -------- -------- Specimen: [id number] Received: 12/08/20 Status: ESSENCE Montaño Num: [id number] Spec Type: Surgical Subm Dr: Kaushal Marie MD Tissues: A Small Intestine - Biopsy/Polyp (SMALL BOWEL BX) Procedures: HE Stain/2, Gross/Micro L4 -------- Patient: Ivette Blum [id number] (Continued) -------- Signed (signature on file) Hailey Moon MD 12/09/20 [id number] [facility] COVID-19 [facility] [place] 12-[place] SARS-CoV-2 (COVID-19) RNA MARGARETH+probe Ql (Unsp spec) Negative Normal Negative [facility] Comment on above: Order Comment: Healt hcare Worker?: N Result Comment: Testing for SARS-CoV-2 by RT-PCR This test was developed and its performance characteristics determined by [employer] and validated at the [facility]. This test has not been FDA cleared [...] is terminated or revoked sooner. PERFORMED BY: [place] [address] PATHOLOGIST FRONT END SPECIALIST HAILEY MOON M.D. Performed By: #### C OVID 19 [facility] [place] [place] #### [address] Coding Summary.on 09-01-2020 Coding Summary. CODING DATE: 09/01/2020 FINAL [facility] DSC STATUS: Home (Routine DC) PAYOR: Commercial Insurance [...] result in slightly different terminology. Coded By: Jennie Lopez CphT Date Saved: 09/01/2020 02:20 pm Normal [facility] US Abdomen, Limitedon 2020 US Abdomen, Limited [...] Bernal DO Transcribed by: WHIT Technologist: LUKE Normal [facility] US Pelvis Non-OB Limitedon 0 08-29-2020 US [...] LUKE Technical Comments Transabdominal Ultrasound Performed Normal [facility] Consent for Treatmenton Consent for Treatment [id number]:127 Normal [facility] Physician Orderon 08-27-2020 Physician Order [id number]:127 Normal [facility] CBC AUTO DIFFon 09-01-2018 Basophils #/vol (Bld) 0.1 103/ul Normal 0.0-0.[address] [facility] Comment on above: Performed By: #### C BC #### [facility] [address] [place], [place] [id number] Leah Elysia Basophils/100 WBC (Bld) 0.7 % Normal 0.2-2.[address] [facility] Comment on above: Performed By: #### C BC #### [facility] [address] [place] [address] Leah Elysia Eosinophils #/vol (Bld) 0.1 103/ul Normal 0.0-0.[address] [facility] Comment on above: Performed By: #### C BC #### [facility] [address] [place] [address] Leah Elysia Eosinophils/100 WBC (Bld) 0.9 % Normal 0.9-7.[address] [facility] Comment on above: Performed By: #### C BC #### [facility] [address] [place] [address] Leah Naidu Erythrocyte distribution width Ratio (RBC) 11.9 % Normal 11.0-15.[address] [facility] Comment on above: Performed By: #### C BC #### [facility] [address] [place], [place] [address] Leah Naidu Hematocrit Volume Fraction (Bld) 45.9 % Normal 36.0-48.[address] [facility] Comment on above: Performed By: #### C BC #### [facility] [address] [place], [place] [address] Leah Naidu Hemoglobin mass conc (Bld) 15.8 g/dL Normal 12.0-16.0 [facility] Comment on above: Performed By: #### C BC #### [facility] [address] [id number] Leahmel Naidu IG # 0.00 10e3/ul Normal 0.00-0.[address] [facility] Comment on above: Performed By: #### C BC #### [facility] [address] [address] Leah Elysia IG % 0.1 % Normal 0.0-0.[address] [facility] Comment on above: Performed By: #### C BC #### [facility] [address] [place] [address] Leah Elysia Lymphocytes #/vol (Bld) 1.3 103/ul Normal 1.2-3.[address] [facility] Comment on above: Performed By: #### C BC #### [facility] [address] [place] [address] Leah Elysia Lymphocytes/100 WBC (Bld) 17.9 % Critically low 20.5-60.[address] [facility] Comment on above: Performed By: #### C BC #### [facility] [address] [place] [address] Leahmel Naidu MANUAL DIFF REQ NO Normal [facility] Comment on above: Performed By: #### C BC #### [facility] [address] [place] [address] Leahmel Naidu MCH Entitic mass (RBC) 29.3 pg Normal 26.7-34.[address] [facility] Comment on above: Performed By: #### C BC #### [facility] [address] [place] [address] Leahmel Naidu MCHC mass conc (RBC) 34.4 g/dL Normal 29.9-35.2 [facility] Comment on above: Performed By: #### C BC #### [facility] [address] [place] [address] Leahmel Naidu MCV Entitic volume (RBC) 85.2 fL Normal 81.0-99.[address] [facility] Comment on above: Performed By: #### C BC #### [facility] [address] [place], [place] [address] Leah Elysia Monocytes #/vol (Bld) 0.6 103/ul Normal 0.3-0.8 [facility] Comment on above: Performed By: #### C BC #### [facility] [address] [place], [place] [address] Leah Elysia Monocytes/100 WBC (Bld) 7.3 % Normal 1.7-12.0 [facility] Comment on above: Performed By: #### C BC #### [facility] [address], [place] [address] Leah Elysia Neutrophils #/vol (Bld) 5.5 103/ul Normal 1.4-6.5 [facility] Comment on above: Performed By: #### C BC #### [facility] [address], [place] [address] Leah Elysia Neutrophils/100 WBC (Bld) 73.1 % Normal 43.0-75.0 [facility] Comment on above: Performed By: #### C BC #### [facility] [address] [place], [place] [address] Leah Elysia Platelet mean volume Entitic volume (Bld) 11.0 fL Normal 9.5-13.5 [facility] Comment on above: Performed By: #### C BC #### [facility] [address] [place], [place] [address] Leah Elysia Platelets #/vol (Bld) 158 103/ul Normal 150-450 [facility] Comment on above: Performed By: #### C BC #### [facility] [address], [place] [address] Leah Elysia RBC #/vol (Bld) 5.40 106/ul Normal 4.20-5.40 [facility] Comment on above: Performed By: #### C BC #### [facility] [address] [place], [place] [address] Leah Elysia WBC #/vol (Bld) 7.5 103/ul Normal 4.0-11.0 [facility] Comment on above: Performed By: #### C BC #### [facility] [address] [place] [address] Leah Naidu CRPon 09-01-2018 CRP mass conc 0.2 mg/dL Normal <=1.0 [facility] Comment on above: Performed By: #### C MP, CRP #### [facility] [address] [place] [address] Leah Naidu D-DIMERon 09-01-2018 D-DIMER COMMENTS SEE BELOW Normal [facility] Comment on above: Result Comment: Incr eases [...] hospitalization. Performed By: #### D DIM #### [facility] [address] [place] [address] Leah Naidu Fibrin D-dimer FEU IA mass conc (Bld) 0.25 ug/mL Normal 0.19-0.[address] [facility] Comment on above: Performed By: #### D DIM #### [facility] [address] [place] [address] Leah Naidu ER URINE PROFILEon 9 Bilirubin mass conc Negative Normal NEGATIVE [facility] Comment on above: Performed By: #### E RUR #### [facility] [address] [place] [address] Leah Naidu BLOOD Negative Normal NEGATIVE [facility] Comment on above: Performed By: #### E RUR #### [facility] [address] [place] [address] Leah Naidu Clarity Nom (U) CLEAR Normal [facility] Comment on above: Performed By: #### E RUR #### [facility] [address] [place] [address] Leahmel Naidu Color Nom (U) LT. YELLOW Normal YELLOW [facility] Comment on above: Performed By: #### E RUR #### [facility] [address] [place], [place] [address] Leahmel Naidu ERUAHD A micrscopic examination will be performed if indicated. Normal [facility] Comment on above: Performed By: #### E RUR #### [facility] [address] [place], [place] [address] Leah Elysia Glucose mass conc Negative Normal NEGATIVE [facility] [place] [facility] Comment on above: Performed By: #### E RUR #### [facility] [address] [place] [address] Leah Elysia Ketones Ql (U) Negative Normal NEGATIVE [facility] Comment on above: Performed By: #### E RUR #### [facility] [address] [place] [address] Leah Elysia Nitrite Ql (U) Negative Normal NEGATIVE [facility] Comment on above: Performed By: #### E RUR #### [facility] [address] [place] [address] Leah Elysia pH (Bld) 6.5 Normal 5-[address] [facility] Comment on above: Performed By: #### E RUR #### [facility] [address] [place] [address] Leah Elysia Protein mass conc (U) Negative Normal [facility] Comment on above: Performed By: #### E RUR #### [facility] [address] [place] [address] Leahmel Naidu SPEC GRAVITY <=1.005 Normal 1.005-<=1.025 [facility] Comment on above: Performed By: #### E RUR #### [facility] [address] [place] [address] Leah Elysia UR MICRO IND NOT INDICATED Normal [facility] Comment on above: Performed By: #### E RUR #### [facility] [address] [place] [address] Leahmel Naidu Urobilinogen Qn (U) 0.2 EU/dl Normal [facility] Comment on above: Performed By: #### E RUR #### [facility] [address] [place] [address] Leah Naidu WBC #/vol (Bld) Negative Normal NEGATIVE [facility] Comment on above: Performed By: #### E RUR #### [facility] [address] [place] [address] Leah Naidu INFLUENZA A AND B AGon 09-01 INFLUANEGH SEE BELOW Normal [facility] Comment on above: Result Comment: Nega tive for Flu A protein angiten. Infection due to Flu A cannot be ruled out. Flu A angiten in the sample may be below the detection limit of the test. Performed By: #### I NFLUAB #### [facility] [address] [place] [address] Leah Naidu INFLUBNEGH SEE BELOW Normal [facility] Comment on above: Result Comment: Nega tive for Flu B protein antigen. Infection due to Flu B cannot be ruled out. Flu B antigen in the sample may be below the detection limit of the test. Performed By: #### I NFLUAB #### [facility] [address] [place] [address] Leah Naidu INFLUENZA A AG Negative Normal NEGATIVE SEE COMMENT [facility] Comment on above: Performed By: #### I NFLUAB #### [facility] [address] [place] [address] Leah Naidu INFLUENZA B AG Negative Normal NEGATIVE SEE COMMENT [facility] Comment on above: Performed By: #### I NFLUAB #### [facility] [address] [place] [address] Leah Naidu INTERNAL CONTROLS Within Normal Limits Normal Wi thin Normal Limits [facility] Comment on above: Performed By: #### I NFLUAB #### [facility] [address] [place] [address] Leah Elysia PROF 14(COMP METB)on 019 Albumin mass conc 4.4 g/dL Normal 3.5-5.0 [facility] Comment on above: Performed By: #### C MP, CRP #### [facility] [address] [place] [address] Leah Elysia Albumin/Globulin mass ratio 1.4 {ratio} Normal [facility] Comment on above: Performed By: #### C MP, CRP #### [facility] [address] [id number] Leah Elysia ALP enzyme act/vol 62 U/L Normal 38-126 [facility] Comment on above: Performed By: #### C MP, CRP #### [facility] [address] [id number] Leah Elysia ALT enzyme act/vol 38 U/L Normal 9-52 [facility] Comment on above: Performed By: #### C MP, CRP #### [facility] [address] [address] Leah Elysia Anion gap molar conc 15.0 mmol/L Normal [facility] Comment on above: Performed By: #### C MP, CRP #### [facility] [address] [address] Leah Elysia AST enzyme act/vol 17 U/L Normal 14-36 [facility] Comment on above: Performed By: #### C MP, CRP #### [facility] [address] [id number] Leah Elysia Bilirubin Ql (U) 0.3 mg/dL Normal 0.2-1.3 [facility] Comment on above: Performed By: #### C MP, CRP #### [facility] [address] [id number] Leah Elysia Calcium mass conc 9.6 mg/dL Normal 8.4-10.2 [facility] [place] [facility] Comment on above: Performed By: #### C MP, CRP #### [facility] [address] [address] Leah Elysia Chloride molar conc 104 mmol/L Normal 98-107 [facility] Comment on above: Performed By: #### C MP, CRP #### [facility] [address] [id number] Leah Elysia CO2 molar conc 24.5 mmol/L Normal 22.0-30.0 [facility] Comment on above: Performed By: #### C MP, CRP #### [facility] [address] [address] Leah Elysia Creatinine mass conc 0.90 mg/dL Normal 0.52-1.[address] [facility] Comment on above: Performed By: #### C MP, CRP #### [facility] [address] [address] Leah Elysia EGFR-AF MONGOLIAN >60 Normal >=60 [facility] Comment on above: Performed By: #### C MP, CRP #### [facility] [address] [address] Leah Elysia EGFR-NON AF MONGOLIAN >60 Normal >=[address] [facility] Comment on above: Performed By: #### C MP, CRP #### [facility] [address] [place] [address] Leah Elysia Globulin mass conc (S) 3.2 g/dL Normal [facility] Comment on above: Performed By: #### C MP, CRP #### [facility] [address] [place] [address] Leah Elysia Glucose mass conc 114 mg/dL Critically high 74-106 [facility] Comment on above: Performed By: #### C MP, CRP #### [facility] [address] [address] Leah Elysia Potassium molar conc 3.5 mmol/L Normal 3.4-5.[address] [facility] Comment on above: Performed By: #### C MP, CRP #### [facility] [address] [address] Leah Elysia Protein mass conc 7.6 g/dL Normal 6.1-8.2 [facility] Comment on above: Performed By: #### C MP, CRP #### [facility] [address] [place] [address] Leah Elysia Sodium molar conc 140 mmol/L Normal 137-145 [facility] Comment on above: Performed By: #### C MP, CRP #### [facility] [address] [place] [address] Leah Elysia Urea nitrogen mass conc 14.0 mg/dL Normal 7.0-17.[address] [facility] Comment on above: Performed By: #### C MP, CRP #### [facility] [address] [place], [place] [address] Leah Naidu Urea nitrogen/Creatinine mass ratio 15.6 mg/mg Normal [facility] Comment on above: Performed By: #### C MP, CRP #### [facility] [address] [place], [place] [address] Leah Naidu Encounters Encounter Date Encounter Type Care Provider Facility Start: 09-01-2018 End: 09-01-2018 Patient encounter procedure MALINI MARKER Facility:[facility] Payers Date Payer Category Payer Unknown [id number] 1959 Unknown [id number] Summary Purpose Family History No Family History Records FoundNo Family History Records FoundNo Family History Records Found Advance Directives No Advanced Directives Records FoundNo Advanced Directives Records FoundNo Advanced Directives Records Found Additional Source Comments INFORMATION SOURCE (unrecogn ized section and content) DATE CREATED AUTHOR 09/13/[address] [facility] DATE CREATED AUTHOR AUTHOR'S ORGANIZ ATION 09/02/2020 [facility] DATE CREATED AUTHOR AUTHOR'S ORGANIZ ATION 08/19/2021 [facility] FOR RECORDS PERTAINING TO PATIENTS WHO ARE [...] BE BASED ON THE PRIMARY CLINICAL RECORDS. [employer] provides no warranty or guarantee of the accuracy or completeness of information in this document.
[2023-10-21 15:31] LABS: Creatine Kinase 82 U/L (26-192); Myoglobin 35 ng/mL (9-82); Thyroid Stimulating Hormone 1.743 uIU/mL (0.358-3.740)
[2023-10-22 10:08] LABS: Lyme Total Antibody CIA Negative (Negative)
[2023-10-24 13:08] LABS: ANA Direct Positive (Negative); Anti-DNA (DS) Ab Qn <1 IU/mL (0-9); RNP Antibodies 1.1 AI (0.0-0.9); Sjogren's Anti-SS-A <0.2 AI (0.0-0.9); Sjogren's Anti-SS-B <0.2 AI (0.0-0.9)
== END 2023-10-21 14:45 | disposition home or self-care (01) ==
LOC: LAB 14:45
PROVIDERS: Visit Provider Psychiatry & Neurology Neurology
DX: M79.10 Myalgia, unspecified site (principal)
CPT/HCPCS: 36415; 82550; 82607; 83874; 84443; 86038; 86618

== ENCOUNTER 2023-11-29 14:40 | Outpatient (OUT) | payer BC, SELFPAY | END 2023-11-29 14:41 | disposition home or self-care (01) | PROVIDERS: Visit Provider Nurse Practitioner Family | DX: G37.9 Demyelinating disease of central nervous system, unspecified (principal) | CPT/HCPCS: 36415; 86362 ==

== ENCOUNTER 2024-04-16 10:17 | Outpatient (OUT) | payer BC, SELFPAY ==
--- NOTE | 2024-04-16 10:22 | FL_ITS ---
The [address] [address] Patient Name: JAMARI WAYNE MRN: [id number] date: 1995 Sex: F Assigned Patient Location: [place] Current Patient Location: [place] Accession/Order Number: [id number] Exam Date: 04/16/2024 10:30 Report Date: 04/16/2024 11:22 At the request of: ÁNGEL RODRIGUEZ Procedure: FL barium swallow EXAMINATION: FL barium swallow, FL cineradiography HISTORY: PHARYNGOESOPHAGEAL DYSPHAGIA R13.14 FLUORO DOSE: mGy Reference air kerma (Ka,r) COMPARISON: No relevant comparison available. TECHNIQUE: A swallowing evaluation was performed with fluoroscopy in the usual manner. Standard level fluoroscopic mode of operation utilized. FINDINGS: ORAL PHASE: Normal deglutition. PHARYNGEAL PHASE: Normal swallowing. ASPIRATION: None. STRUCTURE: Normal. No visible obstruction, stricture, or dilatation. OTHER: Negative. FL/FL barium swallow IMPRESSION: Normal exam Electronically authenticated by: KIAH HARDIN Date: 04/16/2024 11:22
--- OUTSIDE RECORDS SUMMARY | 2024-04-16 10:34 | XMS_ITS | CCD ---
Author Organization [facility] Care Team Providers Care Sourcing Specialist Name Role Phone MARKER, MALINI Admitting Unavailable MARKER, MALINI Attending Unavailable JANETH VALDEZ Primary Care Unavailable MARKER, MALINI Consulting Unavailable DO Deng Goetz Primary Care Provider DO Jose L Farmer Attending Provider MD Rico Thomas Attending Provider FABI Vasquez Attending Provider [phone] Deng Goetz Primary Care Unavailable Jose L Farmer Admitting Unavailab Jose L Robison Attending Unavailab Rico Mackey Admitting Unavailable Rico Thomas Attending Unavailable Deng Goetz Primary Care Unavailable Hannah Vasquez Admitting Unavailable Hannah Vasquez Attending Unavailable Deng Goetz Primary Care Unavailable Rico Thomas Attending Unavailable Deng Goetz Primary Care Unavailable Rico Thomas Admitting Unavailable JOSE L FARMER Attending Unavailable HANNAH VASQUEZ Attending Unavailable JOSE L FARMER Attending Unavailable ÁNGEL RODRIGUEZ Attending Unavailable DENG GOETZ Unavailable Medications Current Medications Medication Drug Class(es) Dates Sig (Normalized) Sig (Original) triamcinolone acetonide 1 mg/ml topical cream (4 sources) Corticosteroid Start: 11-01-2023 Triamcinolone Acetonide Active 1 APPLIC TOPICAL Three times daily 30 November 01, 2023 12:00am Completed/Discontinued Medications Medication Drug Class(es) Dates Sig (Normalized) Sig (Original) omeprazole 40 mg delayed release oral capsule (4 sources) Proton Pump Inhibitor Start: 12-08-2020 End: 11-01-2023 take 40 mg by mouth once daily Omeprazole Discontinued 40 MG PO Daily 84 84 December 08, 2020 12:00am November 01, 2023 1:29pm Problems Problem Classification Problem Date Documented Date Episodic/Chronic Anxiety disorders (5 sources) Anxiety disorder, unspecified; Translations: [Other specified anxiety disorders] Onset: 09-01-2018 Chronic Genitourinary congenital anomalies (2 sources) Renal agenesis, unilateral; 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] Onset: 09-04-2018 Chronic Immunizations and screening for infectious disease (1 source) Raised antibody titer; Translations: [Raised antibody titer] Onset: 12-08-2023 Episodic Other nervous system disorders (1 source) Demyelinating disease of central nervous system, unspecified; Translations: [Demyelinating disease of central nervous system, unspecified] Onset: 12-20-2023 Chronic Other nervous system disorders (1 source) Ataxia, unspecified; Translations: [Ataxia, unspecified] Onset: 11-04-2023 Episodic Results Test Name Value Interpretation Reference Range Facility Creatinineon 01-12-2024 GFR/1.73 sq M.predicted MDRD (S/P/Bld) [Vol rate/Area] mL/min/{1.73_m2} Normal [facility] Comment on above: Result Comment: PERF ORMED BY: [place] [address] PATHOLOGIST [employer]TR[employer] D[employer] TEMPLATE MAKER FAHAD MOON M.D. Performed By: #### B UN, CREAT #### [facility] [address] [place] [address] Creatinine [Mass/volume] in Serum or PlasmaOrdered By: Rico Thomas on 01-12-2024 Creatinine [Mass/Vol] 0.86 mg/dL Normal 0.60-1.20 [facility] Comment on above: Performed By: #### B UN, CREAT #### [address] No Panel InformationOrdered By: Rico Thomas on 01-12-2024 Estimated GFR (CKD-EPI) > 60.0 mL/Min [facility] Creatinine Clearance (Chem N/A [facility] Urea nitrogen [Mass/volume] in Serum or PlasmaOrdered By: Rico Thomas on 01-12-2024 Urea nitrogen [Mass/Vol] 13 mg/dL Normal 7-25 [facility] Comment on above: Performed By: #### B MELINDA, CREAT #### [facility] [address] [id number] [facility] MR cervical spine wo conon 0 12-20-2023 MR cervical spine wo con [facility] [place] [address] [place] [address] MRI Report Signed Patient: Jamari Elliott MR#: [id number] : 1995 Acct:[id number] Age/Sex: 28 / F ADM Date: 12/20/23 Loc: MR [facility]: [facility] Att[facility] Dr: Hannah DUNLAP Copies to: FABI Golden Ordering Provider: FABI Golden Date of Service: 12/20/23 MR/MR cervical spine wo con: g37,9 MR cervical spine wo con 12/20/2023 3:21 PM SIGNS AND SYMPTOMS: Tingling in extremities since August 2023 PROTOCOL: Multiplanar multisequence MR images of the cervical spine were obtained without IV contrast COMPARISON: None. FINDINGS: The bones of the cervical spine are in anatomic alignment. There is preservation of vertebral body heights. There is under to segmentation across the C2-C3 level. There is mild disc height loss at C3-C4 and C4-C5. There is under segmentation at C7-T1. There is Modic type I endplate edema at C4-C5. The cord is normal in signal. No epidural or paraspinous fluid collection is appreciated. The visualized paraspinous soft tissues are within normal limits. The prevertebral soft tissues are within normal limits. At C2-C3: There congenital under segmentation. There is significant stenosis. At C3-C4: There is a normal disc, central canal, and neural foramen. At C4-C5: There is a left central disc protrusion contributing to moderate to severe spinal canal stenosis. There is mild left neuroforaminal narrowing. At C5-C6: There is a normal disc, central canal, and neural foramen. At C6-C7: There is left sided facet hypertrophy contributing to mild left sided neuroforaminal narrowing. At C7-T1: There is congenital under segmentation without significant stenosis. MR/MR cervical spine wo con IMPRESSION: There is no cord compression or cord signal abnormality. At C4-C5: There is a left central disc protrusion contributing to moderate to severe spinal canal stenosis. There is mild left neuroforaminal narrowing. At C6-C7: There is left sided facet hypertrophy contributing to mild left sided neuroforaminal narrowing. 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 Impression dictated by: Yaniv Arevalo M.D.12/20/2023 4:57 PM Dictation Location: [place] [address] Transcribed By: [facility] 12/20/231656 Dictated By: Yaniv Arevalo II, MD 12/20/231649 Signed By: 12/20/231656 Normal [facility] MR thoracic spine wo conon 0 12-20-2023 MR thoracic spine wo con [place] [address] MRI Report Signed Patient: Jamari Elliott MR#: [id number] : 1995 Acct:[id number] Age/Sex: 28 / F ADM Date: 12/20/23 Loc: MR [facility]: [facility] Attending Dr: Hannah DUNLAP Copies to: FABI Golden Ordering Provider: FABI Golden Date of Service: 12/20/23 MR/MR thoracic spine wo con: g37.9 MR thoracic spine wo con 12/20/2023 3:04 PM SIGNS AND SYMPTOMS: Tingling in all 4 extremities PROTOCOL: Multiplanar multisequence MR images of the thoracic spine were obtained without IV contrast COMPARISON: None. FINDINGS: The bones of the thoracic spine are in anatomic alignment. There is preservation of vertebral body heights. 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 There is severe disc height loss at L1-L2. The marrow signal is within normal limits. No epidural or paraspinous fluid collection is appreciated. The visualized paraspinous soft tissues are within normal limits. At T1-T2: There is a normal disc, central canal, and neural foramen. At T2-T3: There is a normal disc, central canal, and neural foramen. At T3-T4: There is a normal disc, central canal, and neural foramen. At T4-T5: There is a normal disc, central canal, and neural foramen. At T5-T6: There is a normal disc, central canal, and neural foramen. At T6-T7: There is a normal disc, central canal, and neural foramen. At T7-T8: There is a normal disc, central canal, and neural foramen. At T8-T9: There is a normal disc, central canal, and neural foramen. At T9-T10: There is a normal disc, central canal, and neural foramen. At T10-T11: There is a normal disc, central canal, and neural foramen. At T11-T12: There is a normal disc, central canal, and neural foramen. At T12-L1: There is a normal disc, central canal, and neural foramen. At L1-L2: There is a circumferential disc bulge with facet hypertrophy and endplate spur formation with moderate bilateral neural foraminal narrowing and mild to moderate spinal canal narrowing. MR/MR thoracic spine wo con IMPRESSION: No cord compression or cord signal abnormality. 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 At L1-L2: There is a circumferential disc bulge with facet hypertrophy and endplate spur formation with moderate bilateral neural foraminal narrowing and mild to moderate spinal canal narrowing. Impression dictated by: Yaniv Arevalo M.D.12/20/2023 5:04 PM Dictation Location: [place] [address] Transcribed By: [facility] 12/20/23 1704 Dictated By: Yaniv Arevalo II, MD 12/20/23 1657 Signed By: 12/20/23 1704 Normal [facility] ANN Antinuclear Antibodieson 12-08-2023 Antinuclear Abs, IFA Negative Normal . [facility] Comment on above: Result Comment: Nega tive <1:80 Borderline 1:80 Positive >1:80 ICAP nomenclature: AC-0 For more information about Hep-2 cell patterns use ANApatterns.org, the official website for the International Consensus on Antinuclear Antibody (ANN) Patterns (ICAP). Performed at: [address], [place] [id number] Debt Counselor: Charles Berger PhD, Phone: [phone] Performed By: #### C BC, ADDONUAPLUS, BMP, ESR, CRP ####[address]#### ANN, ANTIR, C4, CH50, C3 ####[facility] , Anti-RNPon 12-08-2023 Anti-OCCUP THER 1.1 High 0.0-0.9 [facility] Comment on above: Result Comment: Perf ormed at: - [facility] [address] [id number] Debt Counselor: Charles Berger PhD, Phone: [phone] Performed By: #### C BC, ADDONUAPLUS, BMP, ESR, CRP ####[address]#### ANN, ANTIR, C4, CH50, C3 ####[facility] , Automated basophil %Ordered By: Rico Thomas on 12-08-2023 Basophils/100 WBC (Bld) 0.7 % Normal . [facility] Comment on above: Performed By: #### C BC, ADDONUAPLUS, BMP, ESR, CRP #### [address] #### ANN, ANTIR, C4, CH50, C3 #### [facility] , Automated basophil countOrde red By: Rico Thomas on 12-08-2023 Basophils (Bld) [#/Vol] 0.1 10*3/uL Normal 0.0-0.2 [facility] Comment on above: Performed By: #### C BC, ADDONUAPLUS, BMP, ESR, CRP #### [place] [address] [place] #### ANN, ANTIR, C4, CH50, C3 #### [facility] , Automated blood monocyte cou ntOrdered By: Rico Thomas on 12-08-2023 Monocytes (Bld) [#/Vol] 0.6 10*3/uL Normal 0.0-0.8 [facility] Comment on above: Performed By: #### C BC, ADDONUAPLUS, BMP, ESR, CRP #### [place] [address] [place] #### ANN, ANTIR, C4, CH50, C3 #### [facility] , Automated eosinophil %Ordere d By: Rico Thomas on 12-08-2023 Eosinophils/100 WBC (Bld) 1.6 % Normal . [facility] Comment on above: Performed By: #### C BC, ADDONUAPLUS, BMP, ESR, CRP #### [address] #### ANN, ANTIR, C4, CH50, C3 #### [facility] , Automated eosinophil countOr dered By: Rico Thomas on 12-08-2023 Eosinophils (Bld) [#/Vol] 0.2 10*3/uL Normal 0.0-0.45 [facility] Comment on above: Performed By: #### C BC, ADDONUAPLUS, BMP, ESR, CRP #### [place] [address] [place] #### ANN, ANTIR, C4, CH50, C3 #### [facility] , Automated monocyte %Ordered By: Rico Thomas on 12-08-2023 Monocytes/100 WBC (Bld) 6.2 % Normal . [facility] Comment on above: Performed By: #### C BC, ADDONUAPLUS, BMP, ESR, CRP #### [facility] [address] [place] [address] [place] #### ANN, ANTIR, C4, CH50, C3 #### [facility] , Automated neutrophil %Ordere d By: Rico Thomas on 12-08-2023 Neutrophils/100 WBC (Bld) 70.5 % Normal . [facility] Comment on above: Performed By: #### C BC, ADDONUAPLUS, BMP, ESR, CRP #### [place] [address] [place] #### ANN, ANTIR, C4, CH50, C3 #### [facility] , Bacteria [Presence] in Urine by AutomatedOrdered By: Rico Thomas on 12-08-2023 Bacteria Auto Ql (U) None seen [HPF] None Seen [facility] Basic Metabolic Panelon 11-22 GFR/1.73 sq M.predicted MDRD (S/P/Bld) [Vol rate/Area] mL/min/{1.73_m2} Normal [facility] Comment on above: Performed By: #### C BC, ADDONUAPLUS, BMP, ESR, CRP #### [address] #### ANN, ANTIR, C4, CH50, C3 #### [facility] , Bilirubin Test strip Ql (U)O rdered By: Rico Thomas on 12-08-2023 Bilirubin Ql (U) Negative Negative [facility] C reactive protein [Mass/vol ume] in Serum or PlasmaOrdered By: Rico Thomas on 12-08-2023 CRP [Mass/Vol] < 0.5 mg/dL 0.0-0.5 [facility] C-Reactive Proteinon 024 CRP [Mass/Vol] mg/L Normal 0.0-0.5 [facility] Comment on above: Result Comment: PERF ORMED BY: [place] [address] PATHOLOGIST EXTR[employer]PLATE MAKER FAHAD MOON M.D. Performed By: #### C BC, ADDONUAPLUS, BMP, ESR, CRP #### [place] [address] [place] #### ANN, ANTIR, C4, CH50, C3 #### [facility] , Calcium [Mass/volume] in Ser um or PlasmaOrdered By: Rico Thomas on 12-08-2023 Calcium [Mass/Vol] 9.8 mg/dL Normal 8.6-10.3 [facility] Comment on above: Performed By: #### C BC, ADDONUAPLUS, BMP, ESR, CRP #### [address] #### ANN, ANTIR, C4, CH50, C3 #### [facility] , Carbon dioxide, total [Moles /volume] in Serum or PlasmaOrdered By: Rico Thomas on 12-08-2023 CO2 [Moles/Vol] 24.7 mmol/L Normal 21.0-31.0 [facility] Comment on above: Performed By: #### C BC, ADDONUAPLUS, BMP, ESR, CRP #### [place] [address] [place] #### ANN, ANTIR, C4, CH50, C3 #### [facility] , Chloride [Moles/volume] in S nessa or PlasmaOrdered By: Rico Thomas on 12-08-2023 Chloride [Moles/Vol] 104 mmol/L Normal 98-107 [facility] Comment on above: Performed By: #### C BC, ADDONUAPLUS, BMP, ESR, CRP #### [place] [address] [place] #### ANN, ANTIR, C4, CH50, C3 #### [facility] , Color of Urine by AutoOrdere d By: Rico Thomas on 12-08-2023 Color (U) Yellow Normal Yellow [facility] Comment on above: Order Comment: Name Collection Type:: Clean-Voided Midstream Performed By: #### C BC, ADDONUAPLUS, BMP, ESR, CRP #### [place] [address] [place] #### ANN, ANTIR, C4, CH50, C3 #### [facility] , Complement C3on 12-08-2023 Complement C3 130 mg/dL Normal 82-167 [facility] Comment on above: Result Comment: Perf ormed at: - [facility] [address] [id number] Debt Counselor: Charles Berger PhD, Phone: [phone] Performed By: #### C BC, ADDONUAPLUS, BMP, ESR, CRP ####[address]#### ANN, ANTIR, C4, CH50, C3 ####[facility] , Complement C4on 12-08-2023 Complement C4 25 mg/dL Normal 12-38 [facility] Comment on above: Result Comment: PERF ORMED BY: [place] [address] PATHOLOGIST EXTR[employer]ION D[employer] TEMPL[employer] MAKER FAHAD MOON M.D. Performed By: #### C BC, ADDONUAPLUS, BMP, ESR, CRP ####[address]#### ANN, ANTIR, C4, CH50, C3 ####[facility] , Complement Total (CH50)on Complement Total (CH50) >60 Normal >41 [facility] Comment on above: Result Comment: Age Male Female 1 - 30 days Not Estab. Not Estab. 31 days - 6 months >32 >20 7 months - 17 years >39 >39 >17 years >41 >41 NOTE: The adult ( >17 years ) reference interval range is used to flag abnormals on this report. If the patient is 17 years old or younger, use the table above to determine out of range values. Performed at: - [facility] [address] [place] [id number] Debt Counselor: Charles Berger PhD, Phone: [phone] PERFORMED BY: [place] [address] PATHOLOGIST EXTR[employer]ION D[employer] TEMPLATE MAKER FAHAD MOON M.D. Performed By: #### C BC, ADDONUAPLUS, BMP, ESR, CRP ####[address] [place] [address] [place]#### ANN, ANTIR, C4, CH50, C3 ####[facility] , Complete Blood Count Auto Di ffon 12-08-2023 Mean Corpuscular HGB Conc 33.4 g/dL Normal 32.0-35.0 [facility] Comment on above: Performed By: #### C BC, ADDONUAPLUS, BMP, ESR, CRP #### [place] [address] [place] #### ANN, ANTIR, C4, CH50, C3 #### [facility] , NRBC% 0.1 /100{WBC} Normal 0-0.5 [facility] Comment on above: Performed By: #### C BC, ADDONUAPLUS, BMP, ESR, CRP #### [address] #### ANN, ANTIR, C4, CH50, C3 #### [facility] , Creatinine [Mass/volume] in Serum or PlasmaOrdered By: Rico Thomas on 12-08-2023 Creatinine [Mass/Vol] 0.88 mg/dL Normal 0.60-1.20 [facility] Comment on above: Performed By: #### C BC, ADDONUAPLUS, BMP, ESR, CRP #### [place] [address] [place] #### ANN, ANTIR, C4, CH50, C3 #### [facility] , Dipstick and Microscopicon 0 12-08-2023 Appearance (U) Clear Normal Clear [facility] Comment on above: Order Comment: Name Collection Type:: Clean-Voided Midstream Performed By: #### C BC, ADDONUAPLUS, BMP, ESR, CRP #### [place] [address] [place] #### ANN, ANTIR, C4, CH50, C3 #### [facility] , Bacteria,Urine None Seen Normal None Seen [facility] Comment on above: Order Comment: Name Collection Type:: Clean-Voided Midstream Performed By: #### C BC, ADDONUAPLUS, BMP, ESR, CRP #### [address] #### ANN, ANTIR, C4, CH50, C3 #### [facility] , Bilirubin,Urine Negative Normal Negative [facility] Comment on above: Order Comment: Name Collection Type:: Clean-Voided Midstream Performed By: #### C BC, ADDONUAPLUS, BMP, ESR, CRP #### [address] #### ANN, ANTIR, C4, CH50, C3 #### [facility] , Glucose Ql (U) Normal Normal Normal [facility] Comment on above: Order Comment: Name Collection Type:: Clean-Voided Midstream Performed By: #### C BC, ADDONUAPLUS, BMP, ESR, CRP #### [address] #### ANN, ANTIR, C4, CH50, C3 #### [facility] , Hyaline Casts,Urine 0-8 Normal 0-8 [facility] Comment on above: Order Comment: Name Collection Type:: Clean-Voided Midstream Result Comment: PERF ORMED BY: [place] [address] PATHOLOGIST EXTR[employer] D[employer]PL[employer] MAKER FAHAD MOON M.D. Performed By: #### C BC, ADDONUAPLUS, BMP, ESR, CRP #### [address] #### ANN, ANTIR, C4, CH50, C3 #### [facility] , Ketones Ql (U) Trace High Negative [facility] Comment on above: Order Comment: Name Collection Type:: Clean-Voided Midstream Performed By: #### C BC, ADDONUAPLUS, BMP, ESR, CRP #### [place] [address] #### ANN, ANTIR, C4, CH50, C3 #### [facility] , Leukocyte esterase Test strip Ql (U) Negative Normal Negative [facility] Comment on above: Order Comment: Name Collection Type:: Clean-Voided Midstream Performed By: #### C BC, ADDONUAPLUS, BMP, ESR, CRP #### [address] #### ANN, ANTIR, C4, CH50, C3 #### [facility] , Nitrite,Urine Negative Normal Negative [facility] Comment on above: Order Comment: Name Collection Type:: Clean-Voided Midstream Performed By: #### C BC, ADDONUAPLUS, BMP, ESR, CRP #### [address] #### ANN, ANTIR, C4, CH50, C3 #### [facility] , Occult Blood,Urine Negative Normal Negative [facility] Comment on above: Order Comment: Name Collection Type:: Clean-Voided Midstream Performed By: #### C BC, ADDONUAPLUS, BMP, ESR, CRP #### [address] #### ANN, ANTIR, C4, CH50, C3 #### [facility] , Protein,Urine Negative Normal Negative [facility] Comment on above: Order Comment: Name Collection Type:: Clean-Voided Midstream Performed By: #### C BC, ADDONUAPLUS, BMP, ESR, CRP #### [address] #### ANN, ANTIR, C4, CH50, C3 #### [facility] , RBC LM.HPF (Urine sed) [#/Area] 0 /[HPF] Normal 0-4 [facility] Comment on above: Order Comment: Name Collection Type:: Clean-Voided Midstream Performed By: #### C BC, ADDONUAPLUS, BMP, ESR, CRP #### [address] #### ANN, ANTIR, C4, CH50, C3 #### [facility] , Specificy [place],Urine 1.018 Normal 1.001-1.030 [facility] Comment on above: Order Comment: Name Collection Type:: Clean-Voided Midstream Performed By: #### C BC, ADDONUAPLUS, BMP, ESR, CRP #### [address] #### ANN, ANTIR, C4, CH50, C3 #### [facility] , Squamous Epithelial Cell,Urine 3-4 High 0-2 [facility] Comment on above: Order Comment: Name Collection Type:: Clean-Voided Midstream Performed By: #### C BC, ADDONUAPLUS, BMP, ESR, CRP #### [address] #### ANN, ANTIR, C4, CH50, C3 #### [facility] , Urobilinogen,Urine Normal Normal Normal [facility] Comment on above: Order Comment: Name Collection Type:: Clean-Voided Midstream Performed By: #### C BC, ADDONUAPLUS, BMP, ESR, CRP #### [address] #### ANN, ANTIR, C4, CH50, C3 #### [facility] , WBC,Urine None Seen Normal 0-4 [facility] Comment on above: Order Comment: Name Collection Type:: Clean-Voided Midstream Performed By: #### C BC, ADDONUAPLUS, BMP, ESR, CRP #### [place] [address] [place] #### ANN, ANTIR, C4, CH50, C3 #### [facility] , Erythrocyte Sedimentation Ra cuauhtemoc 12-08-2023 ESR (Bld) [Velocity] 22 mm/h High 0-19 [facility] Comment on above: Result Comment: PERF ORMED BY: [place] [address] PATHOLOGIST EX[employer] D[employer]PL[employer] MAKER FAHAD MOON M.D. Performed By: #### C BC, ADDONUAPLUS, BMP, ESR, CRP #### [facility] [address] [place] [address] [place] #### ANN, ANTIR, C4, CH50, C3 #### [facility] , Erythrocyte distribution wid th [Ratio] by Automated countOrdered By: Rico Thomas on 12-08-2023 Erythrocyte distribution width (RBC) [Ratio] 13.1 % Normal 11.9-15.3 [facility] Comment on above: Performed By: #### C BC, ADDONUAPLUS, BMP, ESR, CRP #### [place] [address] [place] #### ANN, ANTIR, C4, CH50, C3 #### [facility] , Erythrocyte sedimentation ra te by Photometric methodOrdered By: Rico Thomas on 12-08-2023 ESR Photometric method (Bld) [Velocity] 22 mm/hr 0-19 [facility] Erythrocytes [#/area] in Uri ne sediment by Automated countOrdered By: Rico Thomas on 12-08-2023 RBC Auto (Urine sed) [#/Area] 0-1 [HPF] 0-4 [facility] Erythrocytes [#/volume] in B lood by Automated countOrdered By: Rico Thomas on 12-08-2023 RBC (Bld) [#/Vol] 4.56 10*6/uL Normal 3.60-5.00 [facility] Comment on above: Performed By: #### C BC, ADDONUAPLUS, BMP, ESR, CRP #### [place] [address] [place] #### ANN, ANTIR, C4, CH50, C3 #### [facility] , Glucose [Mass/volume] in Ser um or PlasmaOrdered By: Rico Thomas on 12-08-2023 Glucose [Mass/Vol] 86 mg/dL Normal 70-100 [facility] Comment on above: ADA recommended refe rence rangeRandom Glucose Reference Range is dependent on time and content of last meal. Glucose of more than 200 mg/dL in a nonstressed, ambulatory subject supports the diagnosis of Diabetes Mellitus. Result Comment: [place] om Glucose Reference Range is dependent on time and content of last meal. Glucose of more than 200 mg/dL in a nonstressed, ambulatory subject supports the diagnosis of Diabetes Mellitus. ADA recommended reference range Performed By: #### C BC, ADDONUAPLUS, BMP, ESR, CRP #### [address] #### ANN, ANTIR, C4, CH50, C3 #### [facility] , Hematocrit [Volume Fraction] of Blood by Automated countOrdered By: Rico Thomas on 12-08-2023 Hematocrit (Bld) [Volume fraction] 39.6 % Normal 34.0-46.4 [facility] Comment on above: Performed By: #### C BC, ADDONUAPLUS, BMP, ESR, CRP #### [place] [address] [place] #### ANN, ANTIR, C4, CH50, C3 #### [facility] , Hemoglobin [Mass/volume] in BloodOrdered By: Rico Thomas on 12-08-2023 Hemoglobin (Bld) [Mass/Vol] 13.2 g/dL Normal 11.8-15.4 [facility] Comment on above: Performed By: #### C BC, ADDONUAPLUS, BMP, ESR, CRP #### [place] [address] [place] #### ANN, ANTIR, C4, CH50, C3 #### [facility] , Ketones Auto test strip (U) [Mass/Vol]Ordered By: Rico Thomas on 12-08-2023 Ketones (U) [Mass/Vol] Trace Negative [facility] Laboratory - UrinalysisOrder ed By: Rico Thomas on 12-08-2023 Hyaline casts LM Ql (Urine sed) 0-8 [LPF] 0-8 [facility] Leukocytes [#/area] in Urine sediment by Automated countOrdered By: Rico Thomas on 12-08-2023 WBC Auto (Urine sed) [#/Area] None seen [HPF] 0-4 [facility] Leukocytes [#/volume] correc alen for nucleated erythrocytes in Blood by Automated counOrdered By: Rico Thomas on 12-08-2023 WBC corrected for nucl RBC Auto (Bld) [#/Vol] 9.5 10*3/uL 3.8-11.6 [facility] Leukocytes [#/volume] in Blo od by Automated countOrdered By: Rico Thomas on 12-08-2023 WBC (Bld) [#/Vol] 9.5 10*3/uL Normal 3.8-11.6 [facility] Comment on above: Performed By: #### C BC, ADDONUAPLUS, BMP, ESR, CRP #### [address] #### ANN, ANTIR, C4, CH50, C3 #### [facility] , Lymphocytes [#/volume] in Bl ood by Automated countOrdered By: Rico Thomas on 12-08-2023 Lymphocytes (Bld) [#/Vol] 2.0 10*3/uL Normal 1.00-4.8 [facility] Comment on above: Performed By: #### C BC, ADDONUAPLUS, BMP, ESR, CRP #### [facility] [address] [place] [address] [place] #### ANN, ANTIR, C4, CH50, C3 #### [facility] , Lymphocytes/100 leukocytes i n Blood by Automated countOrdered By: Rico Thomas on 12-08-2023 Lymphocytes/100 WBC (Bld) 21.0 % Normal . [facility] Comment on above: Performed By: #### C BC, ADDONUAPLUS, BMP, ESR, CRP #### [place] [address] [place] #### ANN, ANTIR, C4, CH50, C3 #### [facility] , MCH [Entitic mass] by Automa alen countOrdered By: Rico Thomas on 12-08-2023 MCH (RBC) [Entitic mass] 29.0 pg Normal 24.7-34.3 [facility] Comment on above: Performed By: #### C BC, ADDONUAPLUS, BMP, ESR, CRP #### [place] [address] [place] #### ANN, ANTIR, C4, CH50, C3 #### [facility] , MCHC Auto (RBC) [Mass/Vol]Or dered By: Rico Thomas on 12-08-2023 MCHC (RBC) [Mass/Vol] 33.4 g/dL 32.0-35.0 [facility] MCV [Entitic volume] by Auto mated countOrdered By: Rico Thomas on 12-08-2023 MCV (RBC) [Entitic vol] 86.9 fL Normal 80-100 F [facility] Comment on above: Performed By: #### C BC, ADDONUAPLUS, BMP, ESR, CRP #### [address] #### ANN, ANTIR, C4, CH50, C3 #### [facility] , Neutrophils [#/volume] in Bl ood by Automated countOrdered By: Rico Thomas on 12-08-2023 Neutrophils (Bld) [#/Vol] 6.7 10*3/uL Normal 1.8-7.7 [facility] Comment on above: Performed By: #### C BC, ADDONUAPLUS, BMP, ESR, CRP #### [place] [address] [place] #### ANN, ANTIR, C4, CH50, C3 #### [facility] , Nitrite Test strip Ql (U)Ord ered By: Rico Thomas on 12-08-2023 Nitrite Ql (U) Negative Negative [facility] No Panel InformationOrdered By: Rico Thomas on 12-08-2023 Estimated GFR (CKD-EPI) > 60.0 mL/Min [facility] Creatinine Clearance (Chem N/A [facility] OCCUP THER Antibody 1.1 AI 0.0-0.9 [facility] Comment on above: Performed at: CB - [facility] [address] [id number] Director: Charles Berger PhD, Phone: [phone] Total Complement (CH50) >60 U/mL >41 F [facility] Comment on above: Age Male Female 1 - 30 days Not Estab. Not Estab. 31 days - 6 months >32 >20 7 months - 17 years >39 >39 >17 years >41 >41 NOTE: The adult ( >17 years ) reference interval range is used to flag abnormals on this report. If the patient is 17 years old or younger, use the table above to determine out of range values.Performed at: CB - [facility] [address] [id number] Director: Charles Berger PhD, Phone: [phone] Nucleated erythrocytes [Pres ence] in Blood by Automated countOrdered By: Rico Thomas on 12-08-2023 Nucleated RBC Auto Ql (Bld) 0.1 /100{WBC} 0-0.5 [facility] Platelet mean volume [Entiti c volume] in Blood by Automated countOrdered By: Rico Thomas on 12-08-2023 Platelet mean volume (Bld) [Entitic vol] 9.7 fL Normal 6.3-10.7 [facility] Comment on above: Performed By: #### C BC, ADDONUAPLUS, BMP, ESR, CRP #### [facility] [address] [place] [address] #### ANN, ANTIR, C4, CH50, C3 #### [facility] , Platelets [#/volume] in Bloo d by Automated countOrdered By: Rico Thomas on 12-08-2023 Platelets (Bld) [#/Vol] 260 10*3/uL Normal 150-450 [facility] Comment on above: Performed By: #### C BC, ADDONUAPLUS, BMP, ESR, CRP #### [facility] [address] [place] [address] [place] #### ANN, ANTIR, C4, CH50, C3 #### [facility] , Potassium [Moles/volume] in Serum or PlasmaOrdered By: Rico Thomas on 12-08-2023 Potassium [Moles/Vol] 4.1 mmol/L Normal 3.5-5.1 [facility] Comment on above: Performed By: #### C BC, ADDONUAPLUS, BMP, ESR, CRP #### [place] [address] [place] #### ANN, ANTIR, C4, CH50, C3 #### [facility] , Protein Auto test strip (U) [Mass/Vol]Ordered By: Rico Thomas on 12-08-2023 Protein (U) [Mass/Vol] Negative Negative [facility] Serum homogeneous pattern an tinuclear antibody (ANN) titerOrdered By: Rico Thomas on 12-08-2023 Homogenous nuclear Ab pattern (S) [Titer] N/A [facility] Serum nuclear antibody titer Ordered By: Rico Thomas on 12-08-2023 Nuclear Ab (S) [Titer] Negative . [facility] Comment on above: Negative <1:80 Basim adams 1:80 Positive >1:80ICAP nomenclature: AC-0For more information about Hep-2 cell patterns useANApatterns.org, the official website for theInternational Consensus on Antinuclear Antibody (ANN)Patterns (ICAP).Performed at: [facility] [id number] Director: Charles Berger PhD, Phone: [phone] Serum or plasma anion gap de terminationOrdered By: Rico Thomas on 12-08-2023 Anion gap [Moles/Vol] 12.4 mmol/L Normal 6.0-15.0 [facility] Comment on above: Performed By: #### C BC, ADDONUAPLUS, BMP, ESR, CRP #### [facility] [address] [place] [address] #### ANN, ANTIR, C4, CH50, C3 #### [facility] , Serum or plasma complement C 3 measurement (mass/volume)Ordered By: Rico Thomas on 12-08-2023 Complement C3 [Mass/Vol] 130 mg/dL 82-167 [facility] Comment on above: Performed at: - [address] [id number] Director: Charles Berger PhD, Phone: [phone] Serum or plasma complement C 4 measurement (mass/volume)Ordered By: Rico Thomas on 12-08-2023 Complement C4 [Mass/Vol] 25 mg/dL 12-38 [facility] Sodium [Moles/volume] in Ser um or PlasmaOrdered By: Rico Thomas on 12-08-2023 Sodium [Moles/Vol] 137 mmol/L Normal 136-145 [facility] Comment on above: Performed By: #### C BC, ADDONUAPLUS, BMP, ESR, CRP #### [facility] [address] [place] [address] #### ANN, ANTIR, C4, CH50, C3 #### [facility] , Specific gravity Auto test s trip (U) [Rel density]Ordered By: Rico Thomas on 12-08-2023 Specific gravity (U) [Rel density] 1.018 1.001-1.030 [facility] Squamous epithelial cells de tection in urine sediment by light microscopyOrdered By: Rico Thomas on 12-08-2023 Epithelial cells.squamous LM Ql (Urine sed) 3-4 [HPF] 0-2 [facility] Urea nitrogen [Mass/volume] in Serum or PlasmaOrdered By: Rico Thomas on 12-08-2023 Urea nitrogen [Mass/Vol] 11 mg/dL Normal 7-25 [facility] Comment on above: Performed By: #### C BC, ADDONUAPLUS, BMP, ESR, CRP #### [facility] [address] [place] [address] [place] #### ANN, ANTIR, C4, CH50, C3 #### [facility] , Urine clarity by refractomet ry automatedOrdered By: Rico Thomas on 12-08-2023 Clarity Refractometry automated (U) Clear Clear [facility] Urine glucose measurement by automated test strip (mass/volume)Ordered By: Rico Thomas on 12-08-2023 Glucose Auto test strip (U) [Mass/Vol] Normal mg/dL Normal [facility] Urine hemoglobin detection b y automated test stripOrdered By: Rico Thomas on 12-08-2023 Hemoglobin Auto test strip Ql (U) Negative Negative [facility] Urine leukocyte esterase det ection by automated test stripOrdered By: Rico Thomas on 12-08-2023 Leukocyte esterase Auto test strip Ql (U) Negative Negative [facility] Urine pH measurement by auto mated test stripOrdered By: Rico Thomas on 12-08-2023 pH (U) 6.5 [pH] Normal 5.0-9.0 [facility] Comment on above: Order Comment: Name Collection Type:: Clean-Voided Midstream Performed By: #### C BC, ADDONUAPLUS, BMP, ESR, CRP #### [facility] [address] [place] [address] #### ANN, ANTIR, C4, CH50, C3 #### [facility] , Urobilinogen Auto test strip (U) [Mass/Vol]Ordered By: Rico Thomas on 12-08-2023 Urobilinogen (U) [Mass/Vol] Normal mg/dL Normal [facility] MR head/brain wo conon 11-04 MR head/brain wo [facility] [place] [address] MRI Report Signed Patient: Jamari Elliott MR#: [id number] : 1995 Acct:[id number] Age/Sex: 28 / F ADM Date: 11/04/23 Loc: MR Room: Type: DEP CLI Attending Dr: Jose L Farmer DO Copies to: Jose L aFrmer DO Ordering Provider: Jose L Farmer DO Date of Service: 11/04/23 MR/MR head/brain wo con: R27.0 MR head/brain wo con 11/04/2023 4:18 PM SIGN AND SYMPTOMS: Numbness in hands and feet, facial numbness PROTOCOL: Multiplanar multisequence MR images of the brain were obtained without IV contrast COMPARISON: None. FINDINGS: Extra axial spaces: Age appropriate. Hemorrhage: None. Ventricular system: Within normal limits. Basal cisterns: Within normal limits and not effaced. Cerebral parenchyma: Nonspecific T2 and FLAIR hyperintense foci are noted in the periventricular and subcortical white matter. This is nonspecific. Demyelinating disease should be considered. Midline shift: None.. Cerebellum: Within normal limits. Brainstem: Within normal limits. OTHER: Calvarium: Normal marrow signal. Vascular system: Satisfactory flow voids within the anterior and posterior circulation. Visualized Paranasal sinuses: Within normal limits. Visualized Orbits: Within normal limits. Visualized upper cervical spine: Within normal limits. Sella and skull base: Within normal limits. MR/MR head/brain wo con IMPRESSION: Nonspecific T2 and FLAIR hyperintense foci are noted in the periventricular and subcortical white matter. This is nonspecific. Demyelinating disease should be considered. The brain parenchyma is otherwise within normal limits. Impression dictated by: Yaniv Arevalo M.D.11/05/2023 4:21 PM Dictation Location: [place] [address] Transcribed By: [facility] 11/05/23 1621 Dictated By: Yaniv Arevalo II, MD 11/05/23 1616 Signed By: 11/05/23 1621 Normal [facility] Coding Summary.on 09-01-2020 Coding Summary. CODING DATE: 09/01/[address] [facility] STATUS: Home (Routine DC) PAYOR: Commercial [...] CphT Date Saved: 09/01/2020 02:20 pm Normal [facility] US Abdomen, Limitedon 2020 US Abdomen, Limited [...] (Electronic Signature): 08/29/2020 10:11 am Signed by: Rioc Bernal DO Transcribed by: WHIT Technologist: LUKE Normal [facility] US Pelvis Non-OB Limitedon 0 08-29-2020 US [...] LUKE Technical Comments Transabdominal Ultrasound Performed Normal [facility] Consent for Treatmenton Consent for Treatment [id number] #1.00CD:127 Normal [facility] Physician Orderon 08-27-2020 Physician Order [id number] #1.00CD:127 Normal [facility] CBC AUTO DIFFon 09-01-2018 Basophils #/vol (Bld) 0.1 103/ul Normal 0.0-0.1 [facility] Comment on above: Performed By: #### C BC #### [facility] [address] [place], [place] [id number] Leah Elysia Basophils/100 WBC (Bld) 0.7 % Normal 0.2-2.0 [facility] Comment on above: Performed By: #### C BC #### [facility] [address] [place], [place] [id number] Leah Elysia Eosinophils #/vol (Bld) 0.1 103/ul Normal 0.0-0.7 [facility] Comment on above: Performed By: #### C BC #### [facility] [address] [place], [place] [id number] Leah Elysia Eosinophils/100 WBC (Bld) 0.9 % Normal 0.9-7.0 [facility] Comment on above: Performed By: #### C BC #### [facility] [address] [place], [place] [id number] Leah Elysia Erythrocyte distribution width Ratio (RBC) 11.9 % Normal 11.0-15.0 [facility] Comment on above: Performed By: #### C BC #### [facility] [address] [place], [place] [id number] Leah Elysia Hematocrit Volume Fraction (Bld) 45.9 % Normal 36.0-48.0 [facility] Comment on above: Performed By: #### C BC #### [facility] [address] [place] [address] Leah Naidu Hemoglobin mass conc (Bld) 15.8 g/dL Normal 12.0-16.0 [facility] Comment on above: Performed By: #### C BC #### [facility] [address] [place] [address] Leah Naidu IG # 0.00 10e3/ul Normal 0.00-0.03 [facility] Comment on above: Performed By: #### C BC #### [facility] [address] [place] [address] Leah Naidu IG % 0.1 % Normal 0.0-0.5 [facility] Comment on above: Performed By: #### C BC #### [facility] [address] [place] [address] Leah Naidu Lymphocytes #/vol (Bld) 1.3 103/ul Normal 1.2-3.8 [facility] Comment on above: Performed By: #### C BC #### [facility] [address] [place] [address] Leah Naidu Lymphocytes/100 WBC (Bld) 17.9 % Critically low 20.5-60.0 [facility] Comment on above: Performed By: #### C BC #### [facility] [address] [place] [address] Leah Naidu MANUAL DIFF REQ NO Normal [facility] Comment on above: Performed By: #### C BC #### [facility] [address] [place] [address] Leah Naidu MCH Entitic mass (RBC) 29.3 pg Normal 26.7-34.0 [facility] Comment on above: Performed By: #### C BC #### [facility] [address] [place] [address] Leah Naidu MCHC mass conc (RBC) 34.4 g/dL Normal 29.9-35.2 [facility] Comment on above: Performed By: #### C BC #### [facility] [address] [place], [place] [address] Leah Elysia MCV Entitic volume (RBC) 85.2 fL Normal 81.0-99.0 [facility] Comment on above: Performed By: #### C BC #### [facility] [address] [place], [place] [address] Leah Elysia Monocytes #/vol (Bld) 0.6 103/ul Normal 0.3-0.8 [facility] Comment on above: Performed By: #### C BC #### [facility] [address] [place], [place] [address] Leah Elysia Monocytes/100 WBC (Bld) 7.3 % Normal 1.7-12.0 [facility] Comment on above: Performed By: #### C BC #### [facility] [address] [place], [place] [address] Leah Elysia Neutrophils #/vol (Bld) 5.5 103/ul Normal 1.4-6.5 [facility] Comment on above: Performed By: #### C BC #### [facility] [address] [place] [address] Leah Elysia Neutrophils/100 WBC (Bld) 73.1 % Normal 43.0-75.0 [facility] Comment on above: Performed By: #### C BC #### [facility] [address] [place], [place] [address] Leah Elysia Platelet mean volume Entitic volume (Bld) 11.0 fL Normal 9.5-13.5 [facility] Comment on above: Performed By: #### C BC #### [facility] [address] [place], [place] [address] Leah Elysia Platelets #/vol (Bld) 158 103/ul Normal 150-450 [facility] Comment on above: Performed By: #### C BC #### [facility] [address] [place], [place] [address] Leah Elysia RBC #/vol (Bld) 5.40 106/ul Normal 4.20-5.40 [facility] Comment on above: Performed By: #### C BC #### [facility] [address] [place], [place] [address] Leah Naidu WBC #/vol (Bld) 7.5 103/ul Normal 4.0-11.0 [facility] Comment on above: Performed By: #### C BC #### [facility] [address] [place] [id number] Leahmel Naidu CRPon 09-01-2018 CRP mass conc 0.2 mg/dL Normal <=1.0 [facility] Comment on above: Performed By: #### C MP, CRP #### [facility] [address] [place], [place] [address] Leah Naidu D-DIMERon 09-01-2018 D-DIMER COMMENTS SEE BELOW Normal [facility] Comment on above: Result Comment: Incr eases [...] hospitalization. Performed By: #### D DIM #### [facility] [address] [place], [place] [phone] Leah Naidu Fibrin D-dimer FEU IA mass conc (Bld) 0.25 ug/mL Normal 0.19-0.50 [facility] Comment on above: Performed By: #### D DIM #### [facility] [address] [place], [place] [id number] Leahmel Naidu ER URINE PROFILEon 9 Bilirubin mass conc Negative Normal NEGATIVE [facility] Comment on above: Performed By: #### E RUR #### [facility] [address] [place], [place] [id number] Leah Elysia BLOOD Negative Normal NEGATIVE [facility] Comment on above: Performed By: #### E RUR #### [facility] [address] [place] [address] Leah Naidu Clarity Nom (U) CLEAR Normal [facility] Comment on above: Performed By: #### E RUR #### [facility] [address] [place], [place] [id number] Leah Elysia Color Nom (U) LT. YELLOW Normal YELLOW [facility] Comment on above: Performed By: #### E RUR #### [facility] [address] [place] [address] Leah Naidu ERUAHD A micrscopic examination will be performed if indicated. Normal [facility] Comment on above: Performed By: #### E RUR #### [facility] [address] [place] [address] Leah Elysia Glucose mass conc Negative Normal NEGATIVE [facility] Comment on above: Performed By: #### E RUR #### [facility] [address] [place] [address] Leah Elysia Ketones Ql (U) Negative Normal NEGATIVE [facility] Comment on above: Performed By: #### E RUR #### [facility] [address] [place] [address] Leah Elysia Nitrite Ql (U) Negative Normal NEGATIVE [facility] Comment on above: Performed By: #### E RUR #### [facility] [address] [place] [address] Leah Elysia pH (Bld) 6.5 Normal 5-9 [facility] Comment on above: Performed By: #### E RUR #### [facility] [address] [place] [address] Leah aNidu Protein mass conc (U) Negative Normal [facility] Comment on above: Performed By: #### E RUR #### [facility] [address] [place] [address] Leah Elysia SPEC GRAVITY <=1.005 Normal 1.005-<=1.025 [facility] Comment on above: Performed By: #### E RUR #### [facility] [address] [place] [address] Leah Elysia UR MICRO IND NOT INDICATED Normal [facility] Comment on above: Performed By: #### E RUR #### [facility] [address] [place] [address] Leah Naidu Urobilinogen Qn (U) 0.2 EU/dl Normal [facility] Comment on above: Performed By: #### E RUR #### [facility] [address] [place] [address] Leah Naidu WBC #/vol (Bld) Negative Normal NEGATIVE [facility] Comment on above: Performed By: #### E RUR #### [facility] [address] [place] [address] Leah Naidu INFLUENZA A AND B AGon 09-01 INFLUANEGH SEE BELOW Normal [facility] Comment on above: Result Comment: Nega tive for Flu A protein angiten. Infection due to Flu A cannot be ruled out. Flu A angiten in the sample may be below the detection limit of the test. Performed By: #### I NFLUAB #### [facility] [address] [place] [address] Leah Naidu INFLUBNEGH SEE BELOW Normal [facility] Comment on above: Result Comment: Nega tive for Flu B protein antigen. Infection due to Flu B cannot be ruled out. Flu B antigen in the sample may be below the detection limit of the test. Performed By: #### I NFLUAB #### [facility] [address] [place] [address] Leah Naidu INFLUENZA A AG Negative Normal NEGATIVE SEE COMMENT [facility] Comment on above: Performed By: #### I NFLUAB #### [facility] [address] [place] [address] Leah Naidu INFLUENZA B AG Negative Normal NEGATIVE SEE COMMENT [facility] Comment on above: Performed By: #### I NFLUAB #### [facility] [address] [place] [address] Leah Naidu INTERNAL CONTROLS Within Normal Limits Normal Wi thin Normal Limits [facility] Comment on above: Performed By: #### I NFLUAB #### [facility] [address] [place], [place] [id number] Leah Naidu PROF 14(COMP METB)on 019 Albumin mass conc 4.4 g/dL Normal 3.5-5.0 [facility] Comment on above: Performed By: #### C MP, CRP #### [facility] [address] [place] [address] Leah Elysia Albumin/Globulin mass ratio 1.4 {ratio} Normal [facility] Comment on above: Performed By: #### C MP, CRP #### [facility] [address] [place] [address] Leah Elysia ALP enzyme act/vol 62 U/L Normal 38-126 [facility] Comment on above: Performed By: #### C MP, CRP #### [facility] [address] [place] [address] Leah Elysia ALT enzyme act/vol 38 U/L Normal 9-52 [facility] Comment on above: Performed By: #### C MP, CRP #### [facility] [address] [place] [address] Leah Elysia Anion gap molar conc 15.0 mmol/L Normal [facility] Comment on above: Performed By: #### C MP, CRP #### [facility] [address] [place] [address] Leah Elysia AST enzyme act/vol 17 U/L Normal 14-36 [facility] Comment on above: Performed By: #### C MP, CRP #### [facility] [address] [place] [address] Leah Elysia Bilirubin Ql (U) 0.3 mg/dL Normal 0.2-1.3 [facility] Comment on above: Performed By: #### C MP, CRP #### [facility] [address] [place] [address] Leah Elysia Calcium mass conc 9.6 mg/dL Normal 8.4-10.2 [facility] Comment on above: Performed By: #### C MP, CRP #### [facility] [address] [place] [address] Leah Elysia Chloride molar conc 104 mmol/L Normal 98-107 [facility] Comment on above: Performed By: #### C MP, CRP #### [facility] [address] [place] [address] Leah Elysia CO2 molar conc 24.5 mmol/L Normal 22.0-30.0 [facility] Comment on above: Performed By: #### C MP, CRP #### [facility] [address] [address] Leah Elysia Creatinine mass conc 0.90 mg/dL Normal 0.52-1.04 [facility] Comment on above: Performed By: #### C MP, CRP #### [facility] [address] [address] Leah Elysia EGFR-AF BENINESE >60 Normal >=60 [facility] Comment on above: Performed By: #### C MP, CRP #### [facility] [address] [address] Leah Elysia EGFR-NON AF BENINESE >60 Normal >=60 [facility] Comment on above: Performed By: #### C MP, CRP #### [facility] [address] [address] Leah Elysia Globulin mass conc (S) 3.2 g/dL Normal [facility] Comment on above: Performed By: #### C MP, CRP #### [facility] [address] [address] Laeh Elysia Glucose mass conc 114 mg/dL Critically high 74-106 [facility] Comment on above: Performed By: #### C MP, CRP #### [facility] [address] [address] Leah Elysia Potassium molar conc 3.5 mmol/L Normal 3.4-5.0 [facility] Comment on above: Performed By: #### C MP, CRP #### [facility] [address] [address] Leah Elysia Protein mass conc 7.6 g/dL Normal 6.1-8.2 [facility] Comment on above: Performed By: #### C MP, CRP #### [facility] [address] [place], [place] [address] Leah Vegasen Sodium molar conc 140 mmol/L Normal 137-145 [facility] Comment on above: Performed By: #### C MP, CRP #### [facility] [address] [place], [place] [address] Leahmel Vegasen Urea nitrogen mass conc 14.0 mg/dL Normal 7.0-17.0 [facility] Comment on above: Performed By: #### C MP, CRP #### [facility] [address] [place], [place] [address] Leah Elysia Urea nitrogen/Creatinine mass ratio 15.6 mg/mg Normal [facility] Comment on above: Performed By: #### C MP, CRP #### [facility] [address] [place], [place] [address] Leah Naidu Vital Signs Date Time Vital Sign Value Performing Clinician Amara kay 11-01-2023 13:24-0400 Body height 170.18 cm DO Deng Sofy Work Phone: [facility] 11-01-2023 13:24-0400 Body mass index (BMI) [Ratio] 28.1 kg/m2 DO Deng Sofy Work Phone: [facility] 11-01-2023 13:24-0400 Body temperature 98 [degF] DO Deng Sofy Work Phone: [facility] 11-01-2023 13:24-0400 Body weight 81.64 kg DO Deng Sofy Work Phone: [facility] 11-01-2023 13:24-0400 Heart rate 93 /min DO Deng Sofy Work Phone: [facility] 11-01-2023 13:24-0400 Respiratory rate 16 /min DO Deng Sofy Work Phone: [facility] 11-01-2023 13:24-0400 SaO2% (BldA) [Mass fraction] 98 % DO Deng Sofy Work Phone: [facility] Encounters Encounter Date Encounter Type Care Provider Facility Start: 04-11-2024 End: 04-11-2024 ambulatory ÁNGEL RODRIGUEZ Not Available Start: 01-12-2024 End: 01-12-2024 Patient encounter procedure DO Deng Sofy Work Phone: [facility] [address] Work Phone: Start: 01-12-2024 End: 01-12-2024 ambulatory DO Deng C Sofy Work Phone: [facility] Work Phone: Start: 01-02-2024 End: 01-02-2024 ambulatory JOSE L FARMER Not Available Start: 12-20-2023 End: 12-20-2023 Patient encounter procedure DO Deng Sofy Work Phone: [facility] [address] Work Phone: Start: 12-20-2023 End: 12-20-2023 ambulatory DO Deng C Sofy Work Phone: [facility] Work Phone: Start: 12-08-2023 End: 12-08-2023 Patient encounter procedure DO Deng Sofy Work Phone: [facility] [address] Work Phone: Start: 12-08-2023 End: 12-08-2023 ambulatory DO Deng C Sofy Work Phone: [facility] Work Phone: Start: 11-24-2023 End: 11-24-2023 ambulatory HANNAH VASQUEZ Not Available Start: 11-10-2023 End: 11-10-2023 ambulatory JOSE L FARMER Not Available Start: 11-04-2023 End: 11-04-2023 Patient encounter procedure DO Deng Sofy Work Phone: [facility] [place] Work Phone: Start: 11-04-2023 End: 11-04-2023 ambulatory DO Deng C Sofy Work Phone: [facility] Work Phone: Start: 11-01-2023 End: 11-01-2023 Patient encounter procedure DO Deng Sofy Work Phone: [facility] Work Phone: Start: 09-01-2018 End: 09-01-2018 Patient encounter procedure MALINI MARKER Facility: Procedures Date Procedure Procedure Detail Performing Clinician Start: 12-20-2023 MRI of cervical spin e without contrast DO Deng Sofy Work Phone: Start: 12-20-2023 MR thoracic spine wo con DO Deng Sofy Work Phone: Start: 11-04-2023 MRI of head DO Deng T senior associate Work Phone: Plan of Treatment Date Care Activity Detail Author Start: 12-08-2023 Hemolytic complement CH50 level [facility] Start: 12-08-2023 OCCUP THER antibody measurement [facility] Start: 12-08-2023 [facility] Start: 11-04-2023 MR Brain WO contrast [facility] Start: 11-04-2023 MRI of head MR head/brain wo con [facility] Payers Date Payer Category Payer Self-pay [id number] 2022 Unknown [id number] 1995 Unknown [id number] 2.16.84 [id number] 1995 Unknown [id number] 2.16.84 [id number] 1995 Unknown [id number] 2.16.84 [id number] 1995 Unknown [id number] 2.16.84 [id number] 1995 Unknown [id number] 2.16.84 [id number] 1959 Unknown [id number] Unknown [id number] 2.16.8 [id number] Unknown [id number] 2.16.8 [id number] Unknown [id number] 2.16.8 [id number] Unknown [id number] 2.16.8 [id number] Social History Date Type Detail Facility Start: 11-01-2023 Tobacco smoking stat us PAIS Never smoked tobacco (finding) [facility] Start: 1995 Sex Assigned At Female F [facility] Evaluation note Note Date & Type Note Facility Evaluation note No assessment information availa [facility] Work Phone: Summary Purpose Family History No Family History Records Found Relationship Condition Age at Onset Recorded Date/T aravind Not Specified No pertinent family history Unknown Advance Directives No Advanced Directives Records Found Advance Directive Response Recorded Date/ Time Advance Directives No October 31 1:19pm Chief Complaint and Reason for Visit Chief Complaint Rash r27.0 Chief Complaint Rash r27.0 R76.0 G37.9 Additional Source Comments INFORMATION SOURCE (unrecogn ized section and content) DATE CREATED AUTHOR 09/13/2018 [facility] DATE CREATED AUTHOR AUTHOR'S ORGANIZ ATION 09/02/2020 [facility] DATE CREATED AUTHOR AUTHOR'S ORGANIZ ATION 01/23/2024 [facility] DATE CREATED AUTHOR AUTHOR'S ORGANIZ ATION 04/13/2024 [facility] [employer] Care Teams (unrecognized sec tion and content) Team Status: Active Member Role Status Dates Deng Goetz DO Primary Care Provider Active Team Status: Inactive Member Role Status Dates Deng Goetz DO Primary Care Provider Active Start: November 01, 2023 End: November 01, 2023 Paty Holloway APRN Attending Provider Active Start: November 01, 2023 End: November 01, 2023 Team Status: Inactive Member Role Status Dates Deng Goetz DO Primary Care Provider Active Start: November 04, 2023 End: November 04, 2023 Jose L Farmer DO Attending Provider Active Start: November 04, 2023 End: November 04, 2023 Team Status: Inactive Member Role Status Dates Deng Goetz DO Primary Care Provider Active Start: December 08, 2023 End: December 08, 2023 Rico Thomas MD Attending Provider Active St art: December 08, 2023 End: December 08, 2023 Team Status: Inactive Member Role Status Dates Deng Goetz DO Primary Care Provider Active Start: December 20, 2023 End: December 20, 2023 FABI Golden Attending Provider Active Start: December 20, 2023 End: December 20, 2023 Team Status: Inactive Member Role Status Dates Deng Goetz DO Primary Care Provider Active Start: January 12, 2024 End: January 12, 2024 Rico Thomas MD Attending Provider Active St art: January 12, 2024 End: January 12, 2024 Goals (unrecognized section and content) Goals may be documented in a n alternate sectionGoals may be documented in an alternate sectionGoals may be documented in an alternate sectionGoals may be documented in an alternate section FOR RECORDS PERTAINING TO PATIENTS WHO ARE [...] BE BASED ON THE PRIMARY CLINICAL RECORDS. [employer] provides no warranty or guarantee of the accuracy or completeness of information in this document.
== END 2024-04-16 10:18 | disposition home or self-care (01) ==
LOC: FL 10:17
PROVIDERS: Visit Provider Otolaryngology
DX: R13.14 Dysphagia, pharyngoesophageal phase (principal)
CPT/HCPCS: 74220; 76120